=== PATIENT | male | born 1955 | race African-American/Black ===

== ENCOUNTER 2024-05-09 08:57 | Emergency (ER) | payer MEDICARE, SELFPAY ==
[2024-05-09] VITALS (22 sets, daily range): BP systolic 136–156; BP diastolic 72–79; PULSE 61–75; RESP 10–19; TEMP 36.4; O2SAT 98–100
--- NOTE | ~2024-05-09 | CT_ITS ---
CT brain wo con Ordering provider: Moriah Hernandez History: 69 years Male with . fall, ?LOC; Hx TBI Sz . Comparison: None. Technique: CT of the head without contrast. Radiation reduction technique utilized. DLP is 681 mGy-cm. FINDINGS: BRAIN PARENCHYMA AND CSF SPACES: Mild leukoaraiosis and diffuse cortical atrophy. Mild atheromatous d isease. No midline shift, mass effect or hemorrhage. The brain parenchyma and CSF spaces are otherwi se normal. VISUALIZED PARANASAL SINUSES: Well aerated. MASTOIDS: Well aerated. BONES: The bones appear intact. SOFT TISSUES: Visualized nasopharynx is normal. Superficial soft tissues are normal. IMPRESSION: No acute intracranial findings. Reviewed, dictated and finalized at location A.
--- NOTE | ~2024-05-09 | XR_ITS ---
XR shoulder RT min 2V 05/09/2024 11:56 Indication: Right shoulder pain after fall Procedure: 4 views right shoulder Comparison: No prior studies for comparison. Findings: There is anatomic alignment. No fracture, subluxation or dislocation. No significant soft t issue abnormality. No foreign bodies. Impression: 1: No acute fracture. Reviewed, dictated and finalized at location B. Impression: 1: No acute fracture.
--- NOTE | ~2024-05-09 | CT_ITS ---
EXAMINATION: CT cervical spine wo con DATE: 05/09/2024 11:51 INDICATION: Neck pain after fall TECHNIQUE: Computed tomography (CT) of the cervical spine was performed without intravenous contrast. The dose-length product was 201 mGy-cm. Automated exposure control and iterative reconstruction tech Calibrusque were employed. COMPARISON: None FINDINGS: There is accentuated kyphosis. There is levoscoliosis. There is disc narrowing at multiple levels. There is multilevel uncinate hypertrophy there is chronic wedge compression deformity of T2. No evidence for perched facet. Craniovertebral junction is normal. Odontoid process is normal. There is emphysema. There is apical pleural thickening/scarring bilaterally. IMPRESSION: 1. No acute abnormality of the cervical spine. 2: Chronic anterior wedge compression deformity of T2. 3: Severe cervical spondylosis with accentuated kyphosis and levoscoliosis. Reviewed, dictated and finalized at location B.
--- NOTE | 2024-05-09 09:02 | ECG_ITS ---
Test Date: 2024-05-09 09:04:15 Measurements Intervals [place] Rate: 71 P: 79 OR: 145 QRS: 67 QRSD: 88 T: 57 QT: 377 QTc: 412 Interpretive Statements SINUS RHYTHM WITH SINUS ARRHYTHMIA VOLTAGE CRITERIA FOR LVH BASELINE ARTIFACT- V3 BORDERLINE ECG No previous ECG available for comparison Electronically Signed On 05-09-2024 09:10:59 CDT by Spencer Lofton D.O.
[2024-05-09 09:21] LABS: Eosinophils Absolute Auto 0.1 K/mm3 (0-0.3); Eosinophils Percent Auto 3.3 % (0-4.4); Hematocrit 37.1 % (42.0-52.0); Hemoglobin 11.8 g/dL (14.0-18.0); Immature Granulocyte Absolute 0.03 K/mm3 (0.00-0.031); Immature Granulocyte Percent A 0.7 % (0-0.5); Lymphocytes Absolute Auto 1.14 K/mm3 (0.9-3.2); Lymphocytes Percent Auto 27.1 % (18.3-44.2); Mean Corpuscular HGB Conc 31.8 g/dl (32-36); Mean Corpuscular Volume 91.2 fl (80-100); Mean Platelet Volume 9.8 fl (7.4-10.4); Monocytes Absolute Auto 0.5 K/mm3 (0.1-0.6); Monocytes Percent Auto 12.6 % (2.6-8.5); Neutrophils Absolute Auto 2.3 K/mm3 (1.3-6.7); Neutrophils Percent Auto 55.3 % (45.5-73.1); Platelet Count Result 192 k/mm3 (150-375); Red Blood Count 4.07 M/mm3 (4.6-6.20); Red Cell Distribution Width 15.6 % (11.5-14.5); White Blood Count 4.2 K/mm3 (4.5-10.0)
[2024-05-09 09:34] LABS: Alanine Aminotransferase 15 U/L (6-50); Albumin Level 4.3 g/dL (3.5-5.1); Alkaline Phosphatase 69 U/L (38-126); Anion Gap 9 mmol/L (4-12); Aspartate Amino Transferase 21 U/L (17-59); Bilirubin,Total 0.4 mg/dL (0.2-1.3); Blood Urea Nitrogen 12 mg/dL (9-20); Calcium 8.9 mg/dL (8.4-10.2); Carbon Dioxide 32 mmol/L (22-30); Chloride 99 mmol/L (98-107); Estimated CRCL calculation 47 ml/min; Estimated Glomerular Filt Rate > 60; Glucose 92 mg/dL (65-110); Potassium 3.4 mmol/L (3.4-5.0); Sodium 140 mmol/L (137-145)
[2024-05-09 10:19] LABS: Lactic Acid Reflex 1.1 mmol/L (0.7-2.0)
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
[2024-05-09] MEDS: ACETAMINOPHEN 500 MG TABLET 1000 MG PO (11:15)
[2024-05-09] MEDS: KETOROLAC 15 MG/ML VIAL (*BKC) IV PUSH (13:06)
[2024-05-10 07:49] LABS: Levetiracetam Keppra 13.5 mcg/mL (6.0-46.0)
[2024-05-25 13:53] LABS: Lamotrigine Lamictal 10.2 mcg/mL (2.5-15.0)
== END 2024-05-09 14:07 ==
PROVIDERS: Emergency Provider Student in an Organized Health Care Education/Training Program
DX: S22.020A Wedge compression fracture of second thoracic vertebra, initial encounter for closed fracture (principal); D64.9 Anemia, unspecified; D72.819 Decreased white blood cell count, unspecified; G30.9 Alzheimer's disease, unspecified; M06.9 Rheumatoid arthritis, unspecified; F02.80 Dementia in other diseases classified elsewhere, unspecified severity, without behavioral disturbance, psychotic disturbance, mood disturbance, and anxiety; E78.5 Hyperlipidemia, unspecified; I10 Essential (primary) hypertension; Z79.82 Long term (current) use of aspirin; Z79.899 Other long term (current) drug therapy; W19.XXXA Unspecified fall, initial encounter
CPT/HCPCS: 36415; 70450; 72125; 73030; 80053; 80175; 80177; 83605; 85025; 93005; 96374; 99284; A9270; J1885

== ENCOUNTER 2024-06-01 20:09 | Emergency (ER) | payer MEDICARE, SELFPAY ==
[2024-06-01] VITALS (7 sets, daily range): BP systolic 117–130; BP diastolic 63–71; PULSE 86–108; RESP 13–19; TEMP 37.3–37.8; O2SAT 95–98
--- NOTE | ~2024-06-01 | CT_ITS ---
EXAMINATION: CT abdomen pelvis w con DATE: 06/01/2024 21:24 INDICATION: Abdominal distention and constipation. Febrile. TECHNIQUE: Computed tomography (CT) of the abdomen and pelvis was performed with 100 mL Omnipaque-350 intravenous contrast. Automated exposure control and iterative reconstruction technique were employe d. The dose-length product was 193.79 mGy-cm. COMPARISON: None FINDINGS: Mild emphysema. Mild dependent atelectasis in the bilateral lower lobes heart size is normal. No ama cardial or pleural effusion. Small sliding-type hiatal hernia and edematous wall thickening the dista l esophagus suggestive of esophagitis and the setting of reflux. Liver, gallbladder, spleen, pancreas , bilateral adrenal glands and kidneys are normal. There is fluid scattered throughout significant po rtion of the colon consistent with diarrhea. No frankly dilated loops of small bowel or transition po int to suggest obstruction. Prostatomegaly. Guevara catheter and gas within the decompressed bladder. A ssessment of the pelvis is somewhat limited by dense metallic streak artifact from a bipolar type lef t hip hemiarthroplasty. Suggestion of a small amount of ascites in the deep pelvis. No abscess or yony e intraperitoneal gas. Indeterminate mixed lytic and sclerotic lesion at the right ischial which rais es concern for metastatic disease. Old healed fractures of the right inferior pubic ramus and left le sser trochanter. There are also . Be a few scattered more subtle lytic lesions such as in the T11 rafi tebral body and left posterior iliac spine. IMPRESSION: 1. Small sliding-type hiatal hernia with prominent wall thickening the distal esophagus suggesting es ophagitis such as in the setting of reflux. 2. Prominent gas and fluid in the colon consistent with diarrhea. 3. Small amount nonspecific ascites in the deep pelvis. 4. Indeterminate mixed lytic and sclerotic lesion at the right ischial as well as a few scattered tammie ent bone lesions in the spine and pelvis which remains concerning for malignancy including metastatic disease or multiple myeloma. Correlate with clinical history and consider further evaluation with carri ne scan and SPEP/UPEP levels. Reviewed, dictated and finalized at location A. IMPRESSION: 1. Small sliding-type hiatal hernia with prominent wall thickening the distal e sophagus suggesting esophagitis such as in the setting of reflux. 2. Prominent gas and fluid in the colon consistent with diarrhea. 3. Small amount nonspecific ascites in the deep pelvis. 4. Indeterminate mixed lytic and sclerotic lesion at the right ischial as well as a few scattered lucent bone lesions in the spine and pelvis which remains co ncerning for malignancy including metastatic disease or multiple myeloma. Corre late with clinical history and consider further evaluation with bone scan and S PEP/UPEP levels.
--- NOTE | ~2024-06-01 | XR_ITS ---
EXAMINATION: XR chest 1V DATE: 06/01/2024 21:14 INDICATION: Borderline febrile TECHNIQUE: frontal view of the chest was obtained. COMPARISON: None FINDINGS: The lungs are clear with no focal airspace opacities, pulmonary edema, pleural effusion or pneumothor ax. The cardiomediastinal silhouette is normal. Partially supply project over the left hemithorax wit h leads extending cephalad towards the left neck and beyond the cephalad margin field of view potenti ally carotid body stimulator. A few old bilateral rib fractures. IMPRESSION: 1. No acute cardiopulmonary disease. Reviewed, dictated and finalized at location A.
--- NOTE | ~2024-06-01 | XR_ITS ---
EXAMINATION: XR hip LT 2V w AP pelvis DATE: 06/01/2024 21:14 INDICATION: Left hip pain TECHNIQUE: Anteroposterior view of the pelvis and anteroposterior and cross-table lateral views of th e left hip were obtained. COMPARISON: None. FINDINGS: Noncemented bipolar type left hip hemiarthroplasty which appears well seated in near-anatomic alignme nt. Old healed fractures at the the right inferior pubic ramus and left lesser trochanter. Prominent heterotopic ossification about the left greater trochanter which extends towards the rim of the left acetabulum. Sclerotic lesion at the right ischial tuberosity. No acute fractures. Mild osteoarthritis at the right hip and bilateral sacroiliac joints. Temperature probe within a Guevara catheter within t he bladder. IMPRESSION: 1. No acute osseous abnormality. 2. Indeterminate sclerotic lesion at the right ischial tuberosity which raises concern for malignancy . Correlate for history of prior malignancy and consider bone scan for further evaluation. Reviewed, dictated and finalized at location A. IMPRESSION: 1. No acute osseous abnormality. 2. Indeterminate sclerotic lesion at the right ischial tuberosity which raises concern for malignancy. Correlate for history of prior malignancy and consider bone scan for further evaluation.
--- NOTE | 2024-06-01 20:23 | ED.ABDPAIN ---
HPI - Abdominal Pain General Chief Complaint: Abdominal Pain Stated Complaint: HIP PAIN, ABD PAIN, CONSTIPATION Time Seen by Provider: 06/01/24 20:15 Source: patient and EMS Mode of arrival: EMS History of Present Illness HPI narrative: Patient presents with complaint of abdominal pain and left hip pain. There is reported by facility that he has been constipated. It is reported that his abdomen is distended. No report of fall or injury though a possible prior injury in this location. Related Data Allergies Allergy/AdvReac Type Severity Reaction Status Date / Time No Known Allergies Allergy Verified 05/09/24 09:14 PMFSH Past Medical History Medical History Acute and chronic respiratory failure with hypoxia Alzheimer's disease, unspecified Depression, unspecified Essential (primary) hypertension Generalized anxiety disorder Hyperlipidemia, unspecified Moderate protein-calorie malnutrition Other epilepsy, intractable, with status epilepticus Rheumatoid arthritis, unspecified Unspecified convulsions 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, subsequent encounter Social History Social History Social History: Code Status DNR per intermediate doumentation Living arrangements: intermediate Additional living arrangements comments: [facility] Exam Narrative: GENERAL: Well-appearing, well-nourished, and in no acute distress. HEAD: Normocephalic, atraumatic. EYES: Non injected, non icteric. Arcus senilis. ENT: Nares clear, no rhinorrhea or epistaxis. NECK: Supple. CHEST: Speaking in full sentences. No respiratory distress. HEART: Tachycardic rate and rhythm. . ABDOMEN: Soft, distended. Generalized tenderness to palpation throughout. EXTREMITIES: Normal range of motion. No lower extremity edema. Pelvis: Stable to compression without deborah tenderness to palpation. SKIN: Warm, dry, no rash. NEURO: No focal deficits. Alert and oriented. PSYCH: Normal mood and affect. Course Vital Signs Vital signs: Vital Signs Temperature 100.0 F H 06/01/24 20:10 Pulse Rate 108 H 06/01/24 20:10 Respiratory Rate 13 06/01/24 20:10 Blood Pressure 119/71 06/01/24 20:10 Pulse Oximetry 97 06/01/24 20:10 Oxygen Delivery Room Air 06/01/24 20:10 Temperature 99.1 F 06/01/24 23:45 Pulse Rate 95 06/01/24 23:45 Respiratory Rate 17 06/01/24 23:45 Blood Pressure 117/67 06/01/24 23:45 Pulse Oximetry 98 06/01/24 23:45 Oxygen Delivery Room Air 06/01/24 20:10 MDM - Abdominal Pain MDM Narrative Medical decision making narrative: Patient presents the emergency department with report constipation abdominal distension as well as left hip pain. In the emergency department he is afebrile (though borderline on both oral and rectal) with vital signs that show mild tachycardia. Patient has hypokalemia and hypomagnesemia. Will replete both. Patient has a hiatal hernia with signs of esophagitis; PPI ordered. Facility had stated that patient had not had a bowel movement several days. Patient denies this and rather states that he has been running out . I did clarify that this meant that he has been having diarrhea which he confirms this is evident based on CT scan as well. He does not believe he has been on any antibiotics. Current medication list from facility does not include any antibiotics.. C diff ordered however patient unable to provide stool sample while in the ED which also makes this diagnosis less likely. The differential for acute ( less than 14d) diarrhea includes infectious etiologies (viral, preformed toxins, toxins formed after colonization, invasive bacteria, and parasites), medications, inflammatory causes (IBD, radiation enteritis, ischemic colitis, diverticulitis), malabsorption, secretory causes, or motility disorders. Patient'
[2024-06-01] MEDS: ACETAMINOPHEN 650 MG SUPPOSITORY RECTAL (20:34)
[2024-06-01 20:42] LABS: Basophils Percent Auto 0.4 % (0.2-1.2); Eosinophils Absolute Auto 0.2 K/mm3 (0-0.3); Eosinophils Percent Auto 2.1 % (0-4.4); Hemoglobin 12.6 g/dL (14.0-18.0); Immature Granulocyte Absolute 0.03 K/mm3 (0.00-0.031); Immature Granulocyte Percent A 0.3 % (0-0.5); Lymphocytes Absolute Auto 1.43 K/mm3 (0.9-3.2); Lymphocytes Percent Auto 15.7 % (18.3-44.2); Mean Corpuscular HGB Conc 32.3 g/dl (32-36); Mean Corpuscular Hemoglobin 29.3 pg (26-34); Mean Corpuscular Volume 90.7 fl (80-100); Mean Platelet Volume 10.2 fl (7.4-10.4); Monocytes Absolute Auto 1.7 K/mm3 (0.1-0.6); Monocytes Percent Auto 18.9 % (2.6-8.5); Neutrophils Absolute Auto 5.7 K/mm3 (1.3-6.7); Neutrophils Percent Auto 62.6 % (45.5-73.1); Platelet Count Result 218 k/mm3 (150-375); Red Cell Distribution Width 16.2 % (11.5-14.5); White Blood Count 9.1 K/mm3 (4.5-10.0)
[2024-06-01 20:51] LABS: Lactic Acid Reflex 0.9 mmol/L (0.7-2.0)
[2024-06-01 20:52] LABS: Prothrombin Time 13.2 Seconds (11.1-14.7)
[2024-06-01 20:53] LABS: Alanine Aminotransferase 9 U/L (6-50); Albumin Level 4.3 g/dL (3.5-5.1); Alkaline Phosphatase 74 U/L (38-126); Anion Gap 13 mmol/L (4-12); Aspartate Amino Transferase 15 U/L (17-59); Bilirubin,Total 0.4 mg/dL (0.2-1.3); Blood Urea Nitrogen 16 mg/dL (9-20); Calcium 8.5 mg/dL (8.4-10.2); Carbon Dioxide 24 mmol/L (22-30); Chloride 103 mmol/L (98-107); Estimated CRCL calculation 45 ml/min; Estimated Glomerular Filt Rate > 60; Glucose 107 mg/dL (65-110); Magnesium 1.5 mg/dL (1.6-2.3); Partial Thromboplastin Time 25.6 Seconds (22.3-36.8); Potassium 3.2 mmol/L (3.4-5.0); Sodium 140 mmol/L (137-145)
[2024-06-01 21:06] LABS: Add Urine Microscopic? YES; Appearance Urine Clear (Clear); Bacteria Urine None Seen /hpf; Bilirubin Urine Negative (Negative); Blood Urine Negative (Negative); Color Urine Yellow (Yellow); Glucose Urine UA Negative (Negative); Ketones Urine Trace mg/dL (Negative); Leukocyte Esterase Ur Negative LEU/UL (Negative); Need Manual Microscopic Reviewed; Nitrate Urine Negative (Negative); Protein Urine 2+ mg/dL (Negative); Squamous Epithelial Cell Urine None Seen /hpf (Few); Urobilinogen Urine 0.2 mg/dL (<2.0); WBC Urine 0-5 /hpf (0-3); pH Urine 5.5 (5.0-9.0)
[2024-06-01 21:17] LABS: Influenza A QL RT-PCR Negative (Negative); Influenza B QL RT-PCR Negative (Negative); RSV RNA, RT-PCR Negative (Negative); SARS-CoV-2 RNA PCR Negative (Negative)
[2024-06-01] MEDS: MAGNESIUM SULF 1 GM/D5W 100 ML 1 GM/100 ML BAG IVPB (21:32)
[2024-06-01] MEDS: KCL 20 MEQ/SW 100 ML 100 ML 50 MEQ IVPB (21:58)
[2024-06-01] MEDS: PANTOPRAZOLE 40 MG TABLET PO (22:17)
== END 2024-06-02 00:32 ==
PROVIDERS: Emergency Provider Student in an Organized Health Care Education/Training Program
DX: D64.9 Anemia, unspecified (principal); E87.6 Hypokalemia; E83.42 Hypomagnesemia; M89.9 Disorder of bone, unspecified; K44.9 Diaphragmatic hernia without obstruction or gangrene; K21.9 Gastro-esophageal reflux disease without esophagitis; R50.9 Fever, unspecified; R19.7 Diarrhea, unspecified; R10.9 Unspecified abdominal pain; Z20.822 Contact with and (suspected) exposure to COVID-19; G30.9 Alzheimer's disease, unspecified; F02.80 Dementia in other diseases classified elsewhere, unspecified severity, without behavioral disturbance, psychotic disturbance, mood disturbance, and anxiety; F32.A Depression, unspecified; I10 Essential (primary) hypertension; F41.9 Anxiety disorder, unspecified; E78.5 Hyperlipidemia, unspecified; G40.909 Epilepsy, unspecified, not intractable, without status epilepticus
CPT/HCPCS: 36415; 71045; 73502; 74177; 80053; 81001; 83605; 83735; 85025; 85610; 85730; 87040; 87637; 96365; 96366; 96367; 99284; A9270; J3475; J3480; Q9967

== ENCOUNTER 2024-07-03 18:11 | Observation (INO) | payer MEDICARE, MEDICAID, SELFPAY ==
[2024-07-03] VITALS (12 sets, daily range): BP systolic 130–142; BP diastolic 70–83; PULSE 91–104; RESP 13–24; TEMP 37.3–38.4; O2SAT 96–100
--- NOTE | ~2024-07-03 | CT_ITS ---
EXAMINATION: CT abdomen pelvis w con DATE: 07/03/2024 23:32 INDICATION: possible obstruction TECHNIQUE: Computed tomography (CT) of the abdomen and pelvis was performed with 100 mL Omnipaque-350 intravenous contrast. Automated exposure control and iterative reconstruction technique were employe d. The dose-length product was 383.47 mGy-cm. COMPARISON: 06/01/2024. FINDINGS: Exam limited by motion and beam hardening from arm down positioning. Lower thorax: Motion artifact in the lung bases. Bibasilar scar/atelectasis. Liver: Normal. Biliary/Gallbladder: Gallbladder is normal. No bile duct dilation. Pancreas: No mass or duct dilation. Spleen: Subcentimeter hypodensity likely representing a cyst or hemangioma. Adrenals:No mass. Kidneys: No suspicious mass, obstructing stone, or hydronephrosis. 8 mm left midpole calcification. GI tract: Moderate hiatal hernia. Moderate distal esophageal and proximal gastric wall edema. Mildly dilated loops of small bowel throughout the abdomen, without definite transition point. Normal append ix. Mesentery/Peritoneum: No ascites, mass, or free air. Retroperitoneum: No mass. Atherosclerotic abdominal aortic and/or arterial calcifications. Pelvis: Partial obscuration from metal artifact. Urinary bladder poorly visualized. Prostatomegaly. Soft Tissues: Soft tissues and body wall unremarkable. Bones: No acute osseous finding. Uncomplicated appearing left hip arthroplasty hardware. Stable mixe d sclerotic lesion in the right ischium. Stable lytic lesions in T11 and the left posterior iliac spi ne. IMPRESSION: Moderate esophagitis/gastritis. Diffuse mild dilation of small bowel may represent ileus or obstruction. No definite transition point detected. Stable osseous lesions concerning for disease or multiple myeloma. Reviewed, dictated and finalized at location K. IMPRESSION: Moderate esophagitis/gastritis. Diffuse mild dilation of small bowel may represent ileus or obstruction. No def inite transition point detected. Stable osseous lesions concerning for disease or multiple myeloma.
--- NOTE | ~2024-07-03 | CT_ITS ---
EXAMINATION: CTA BRAIN/CAROTID DATE: 07/05/2024 09:46 INDICATION: Altered mental status. Fall. Covid with fever and seizure. TECHNIQUE: Computed tomographic angiography (CTA) of the head and neck was performed with 100 mL Omni paque-350 intravenous contrast. Multiplanar reconstructions and maximum intensity projection 3D-recon structions of the carotid arteries and of the intracranial arteries were created by the technologist on a separate workstation. Precontrast CT of the head was also obtained. Automated exposure control and iterative reconstruction technique were employed.The dose-length product was 1650.42 mGy-cm. COMPARISON: 07/03/2024 FINDINGS: Carotid arteries: Aortic arch is normal in caliber with no dissection. There is no evident atherosclerotic plaque with 0% stenosis of the right carotid bulb relative to normal distal artery lumen diameter (NASCET criteri a). There is small amount of atherosclerotic plaque with 0% stenosis of the left carotid bulb relativ e to normal distal artery lumen diameter. Moderate cervical spondylosis with chronic mild T2 compress ion fracture. Moderate biapical pleural-parenchymal scarring. Cervical soft tissues are unremarkable. . Head: No acute intracranial hemorrhage, acute infarction or abnormal extra axial fluid collection. There is moderate scattered white matter hypoattenuation consistent with chronic small vessel ischemic diseas e. Tiny focus of calcification along a small tract of encephalomalacia in the right frontal lobe medi ally deep to possible tiny puja hole tract in the overlying right frontal bone. Correlate with surgic al history. Ventricles are normal and symmetric. No mass/mass effect. The orbits, paranasal sinuses a nd mastoid air cells are normal. Intracranial arteries There is no hemodynamically significant stenosis in the vertebral, basilar and internal carotid arter ies. Vertebral arteries are codominant. There are no aneurysms identified. Both A1 and P1 segments a re patent. Cerebral arterial arborization appears symmetric. IMPRESSION: 1. 0% stenosis of the right and left carotid bulbs relative to normal distal artery lumen diameter (N ASCET criteria). 2. No aneurysm, hematoma or significant stenosis or thrombosis of the intracranial arteries. 3. Moderate scattered white matter hypoattenuation consistent with chronic small vessel ischemic dise ase. No other acute intracranial process. Reviewed, dictated and finalized at location B. IMPRESSION: 1. 0% stenosis of the right and left carotid bulbs relative to normal distal ar kayla lumen diameter (NASCET criteria). 2. No aneurysm, hematoma or significant stenosis or thrombosis of the intracran ial arteries. 3. Moderate scattered white matter hypoattenuation consistent with chronic smal l vessel ischemic disease. No other acute intracranial process.
--- NOTE | ~2024-07-03 | CT_ITS ---
EXAMINATION: CT brain wo con DATE: 07/03/2024 20:08 INDICATION: head injury . TECHNIQUE: Computed tomography (CT) of the head was performed without intravenous contrast. The mA wa s adjusted according to patient size. Iterative reconstruction technique was employed. The dose-lengt h product was 681.00 mGy-cm. COMPARISON: 05/09/2024. FINDINGS: No acute intracranial hemorrhage or extra-axial fluid collection. No hydrocephalus, mass, or herniation. No acute ischemic infarct. Unremarkable dural venous sinus attenuation. No acute osseous abnormality. Ethmoid mucosal thickening, left mastoid fluid, the remaining aerated spaces are clear. Moderate atrophy and chronic white matter change. Atherosclerotic intracranial calcification. IMPRESSION: No acute intracranial process. Reviewed, dictated and finalized at location K.
--- NOTE | ~2024-07-03 | XR_ITS ---
EXAMINATION: XR barium swallow modified DATE: 07/05/2024 10:08 INDICATION: Aspiration. TECHNIQUE: The patient was given barium-containing material of multiple consistencies to swallow by t he speech pathologist while I performed fluoroscopy. Fluoroscopy exposure time was 1.9 minutes. The n umber of fluoroscopy images saved to the PACS was 1. Dose-area product was 1.417 Gy-cm^2. FINDINGS: The oral stage, pharyngeal stage, and cervical/esophageal stage of the swallow are normal. IMPRESSION: 1. Normal modified barium swallow. 2. Please refer to the speech therapy report for recommendations. Reviewed, dictated and finalized at location A.
--- NOTE | ~2024-07-03 | XR_ITS ---
EXAMINATION: XR chest 1V portable Exam Date/Time: 07/03/2024 19:30 CDT HISTORY: fever Comparison: 06/01/2024. RESULT: Lines, tubes, and devices: Left chest stimulator pack, leads terminate over the left neck. Lungs and pleura: Clear. Cardiomediastinal silhouette: Stable. Other: No acute osseous or upper abdominal finding. IMPRESSION: No acute cardiopulmonary process. Reviewed, dictated and finalized at location K.
--- NOTE | ~2024-07-03 | CT_ITS ---
EXAMINATION: CT cervical spine wo con DATE: 07/03/2024 20:08 INDICATION: fall TECHNIQUE: Computed tomography (CT) of the cervical spine was performed without intravenous contrast. Automated exposure control and iterative reconstruction technique were employed. The dose-length pro duct was 145.28 mGy-cm. COMPARISON: None. FINDINGS: Vertebral Body Alignment: Intact. Exaggerated kyphosis. Craniocervical and atlantoaxial alignment: Moderate degenerative change. Alignment intact. Osseous structures/fracture: No evidence of a lytic or blastic process in the visualized spine. No e vidence of acute fracture. Chronic stable mild wedge deformity at C4, C5, and T2. Cervical soft tissues: The paraspinal soft tissues planes are maintained. Biapical pleural scarring. Degenerative changes: Multilevel degenerative disc disease and facet arthropathy. Severe bilateral ne ural foraminal narrowing secondary to degenerative changes at C4-5 and C5-6. No severe central canal narrowing. IMPRESSION: No acute fracture or traumatic malalignment in the cervical spine. Reviewed, dictated and finalized at location K.
--- NOTE | ~2024-07-03 | XR_ITS ---
EXAM: XR abdomen/kub 1V DATE: 07/03/2024 21:51 HISTORY: distension . COMPARISON: CT abdomen pelvis 06/01/2024. FINDINGS: Clear lung bases. The stomach is air-filled and mildly distended. Multiple loops of air-fi lled, mildly dilated large and small bowel throughout the abdomen. No organomegaly. No abnormal abdom inal calcification. Partially visualized left hip bipolar arthroplasty hardware, with excessive later al tilt of the acetabular component which is a chronic finding. 2.3 cm mixed sclerotic and lytic lesi on in the right ischium, stable. IMPRESSION: Diffusely air-filled and mildly dilated large and small bowel may represent chronic ileus . Obstruction is not excluded. Reviewed, dictated and finalized at location K. IMPRESSION: Diffusely air-filled and mildly dilated large and small bowel may r epresent chronic ileus. Obstruction is not excluded.
[2024-07-03] MEDS: SODIUM CHLORIDE 0.9% IV 1,000 ML 999 ML IV CONT ×2 (18:40→21:36)
[2024-07-03 18:55] LABS: Hematocrit 40.3 % (42.0-52.0); Hemoglobin 13.1 g/dL (14.0-18.0); Mean Corpuscular HGB Conc 32.5 g/dl (32-36); Mean Corpuscular Volume 89.4 fl (80-100); Mean Platelet Volume 10.3 fl (7.4-10.4); Platelet Count Result 176 k/mm3 (150-375); Red Blood Count 4.51 M/mm3 (4.6-6.20); White Blood Count 9.2 K/mm3 (4.5-10.0)
[2024-07-03 19:07] LABS: Alanine Aminotransferase 23 U/L (6-50); Alkaline Phosphatase 70 U/L (38-126); Anion Gap 16 mmol/L (4-12); Aspartate Amino Transferase 42 U/L (17-59); Bilirubin,Total 0.6 mg/dL (0.2-1.3); Blood Urea Nitrogen 17 mg/dL (9-20); Calcium 9.5 mg/dL (8.4-10.2); Carbon Dioxide 27 mmol/L (22-30); Chloride 97 mmol/L (98-107); Estimated CRCL calculation 37 ml/min; Estimated Glomerular Filt Rate > 60; Glucose 135 mg/dL (65-110); INR 1.1; Lactic Acid Reflex 2.6 mmol/L (0.7-2.0); Potassium 3.9 mmol/L (3.4-5.0); Prothrombin Time 14.3 Seconds (11.1-14.7); Sodium 140 mmol/L (137-145)
[2024-07-03 19:08] LABS: Add Urine Microscopic? YES; Appearance Urine Cloudy (Clear); Bacteria Urine None Seen /hpf; Bilirubin Urine Negative (Negative); Blood Urine 3+ (Negative); Color Urine Yellow (Yellow); Glucose Urine UA Negative (Negative); Ketones Urine Trace mg/dL (Negative); Leukocyte Esterase Ur Trace LEU/UL (Negative); Need Manual Microscopic Reviewed; Nitrate Urine Negative (Negative); Protein Urine 3+ mg/dL (Negative); Specific Grav Ur 1.027 (1.001-1.035); Squamous Epithelial Cell Urine None Seen /hpf (Few); WBC Urine 0-5 /hpf (0-3); pH Urine 5.5 (5.0-9.0)
[2024-07-03 19:08] LABS: Partial Thromboplastin Time 30.8 Seconds (22.3-36.8)
[2024-07-03 19:30] LABS: Influenza A QL RT-PCR Negative (Negative); Influenza B QL RT-PCR Negative (Negative); RSV RNA, RT-PCR Negative (Negative); SARS-CoV-2 RNA PCR Positive (Negative)
[2024-07-03 20:13] LABS: Band Neutrophils Percent 9 % (0-6); Lymphocytes Absolute Manual 0.82 K/mm3 (1.1-4.5); Monocytes Absolute Manual 0.82 K/mm3 (0.1-0.90); Monocytes Percent Manual 9 % (3-9); Neutrophils Absolute Manual 7.54 K/mm3 (1.3-6.7); Neutrophils Percent Manual 73 % (46-73); Total Cells Counted 100
[2024-07-03 20:14] LABS: Platelet Estimate Adequate (Adequate); Schistocytes None Seen
[2024-07-03 20:15] LABS: Anisocytosis 1+
[2024-07-03] MEDS: ACETAMINOPHEN 325 MG TABLET 650 MG PO (21:37)
[2024-07-03 21:50] LABS: Reflex Lactic Acid Yes or No Add Lactic
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
[2024-07-03] MEDS: levETIRAcetam 1000MG/NACL100ML 1,000 MG/100 ML BAG 400 MG IVPB (22:45)
--- NOTE | 2024-07-03 23:51 | ADMGEN ---
This patient, Ranjan Brennan, was admitted to Medical Room 342-01. Patient/family oriented to hospital policies and general routines including ID bracelet, bed and alarms, visiting hours, pain management, procedures, bathroom and other care routines, personal items, smoking policy, room service/diet, and visiting hours. Information on how to activate the Rapid Response Team has been discussed. Patient/Family are encouraged to report perceived risks to care and to ask questions if they do not understand what they are told or what they should do.
[2024-07-04] VITALS (11 sets, daily range): BP systolic 120–135; BP diastolic 53–74; PULSE 79–102; RESP 18–20; TEMP 37.3–39; O2SAT 97–99; BMI 17.0
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
[2024-07-04 05:54] LABS: Basophils Absolute Auto 0.1 K/mm3 (0.0-0.1); Basophils Percent Auto 0.9 % (0.2-1.2); Eosinophils Percent Auto 0.2 % (0-4.4); Hematocrit 38.4 % (42.0-52.0); Hemoglobin 11.5 g/dL (14.0-18.0); Immature Granulocyte Absolute 0.03 K/mm3 (0.00-0.031); Immature Granulocyte Percent A 0.5 % (0-0.5); Immature Platelet Fraction Pct 3.7 % (0.9-11.2); Lymphocytes Absolute Auto 0.55 K/mm3 (0.9-3.2); Lymphocytes Percent Auto 8.5 % (18.3-44.2); Mean Corpuscular HGB Conc 29.9 g/dl (32-36); Mean Corpuscular Volume 93.7 fl (80-100); Mean Platelet Volume 10.6 fl (7.4-10.4); Monocytes Absolute Auto 0.6 K/mm3 (0.1-0.6); Monocytes Percent Auto 9.9 % (2.6-8.5); Neutrophils Absolute Auto 5.2 K/mm3 (1.3-6.7); Platelet Count Result 138 k/mm3 (150-375); White Blood Count 6.5 K/mm3 (4.5-10.0)
[2024-07-04 06:17] LABS: Alanine Aminotransferase 23 U/L (6-50); Alkaline Phosphatase 51 U/L (38-126); Anion Gap 11 mmol/L (4-12); Aspartate Amino Transferase 46 U/L (17-59); Bilirubin,Total 0.5 mg/dL (0.2-1.3); Blood Urea Nitrogen 16 mg/dL (9-20); Calcium 8.5 mg/dL (8.4-10.2); Carbon Dioxide 24 mmol/L (22-30); Chloride 104 mmol/L (98-107); Estimated CRCL calculation 53 ml/min; Estimated Glomerular Filt Rate > 60; Glucose 101 mg/dL (65-110); Magnesium 1.9 mg/dL (1.6-2.3); Potassium 4.2 mmol/L (3.4-5.0); Sodium 139 mmol/L (137-145)
[2024-07-04 06:44] LABS: Procalcitonin 1.7 ng/mL
[2024-07-04 07:05] LABS: Anisocytosis 1+; Hypochromasia 1+; Platelet Estimate Adequate (Adequate); Schistocytes None Seen
[2024-07-04] MEDS: QUEtiapine FUMARATE 25 MG TABLET PO ×2 (10:07→20:19)
[2024-07-04] MEDS: ASPIRIN 81 MG ENTERIC TABLET PO (10:07)
[2024-07-04] MEDS: MEMANTINE 10 MG TABLET PO (10:07)
[2024-07-04] MEDS: ESCITALOPRAM OXALATE 10 MG TABLET PO (10:07)
[2024-07-04] MEDS: PANTOPRAZOLE SODIUM IV 40 MG VIAL IV PUSH (10:08)
[2024-07-04] MEDS: lamoTRIgine 100 MG TABLET 300 MG PO (10:08)
[2024-07-04] MEDS: ATORVASTATIN 20 MG TABLET PO (10:08)
[2024-07-04] MEDS: levETIRAcetam 500 MG TABLET 1000 MG PO (10:08)
--- NOTE | 2024-07-04 13:22 | P.CDI_ITS ---
yes. severe protein calorie malnutrition CDI Query Clarification Request BMI: 17.0 Nutritional Diagnostic Statement: Please refer to the comprehensive nutrition assessment for further information. If you agree with diagnosis of Severe Protein Calorie Malnutrition as related to inadequate protein-energy intake with increased protein-energy needs in setting of chronic disease as evidenced by poor po intake; significant weight loss of 7 ibs (15%) in 1.5 months with severe subcutaneous fat loss (orbital fat pads) and severe muscle wasting (temporalis). Please specify severity if known. * Mild * Moderate * Severe * Other/Unknown
--- NOTE | 2024-07-04 14:58 | PCSTNOTE ---
MBS was tentatively scheduled for 2:30 today however radiology informed this READINESS PARAPROFESSIONAL that patient is unable to sign to approve testing and family is not present; also patient needs CT scan before barium and they require that to be approved as well. Rescheduled for tomorrow morning when able.
[2024-07-04] MEDS: IBUPROFEN IV 800 MG/200 ML 800 MG/200 ML BAG 400 MG IVPB (15:08)
--- NOTE | 2024-07-04 15:16 | P.PNCROSS_ITS ---
Event Note Event Note Event Note: Patient had been seen and assessed by previous provider same day. Follow-up a ssessment by this provider continued with current treatment plan however patient was lethargic with minimal response to questions most responded to stimuli. Unsure of patient's baseline however nursing staff reported that the SNF stated he was ambulatory at their facility and is alert 1-2 no family at bedside to verify baseline. Patient has suffered from a TBI he was brought to the emergency department after a fall at the facility is reported patient did not receive his medications prior to arrival and there was some concern he suffered from a seizure. Patient was also found to have a fever tested positive for COVID. Nursing staff also reported he was coughing with oral intake patient was made NPO and barium swallow study ordered for potential aspiration currently on Rocephin did change patient's Keppra to IV while NPO. Patient with moderate distension to abdomen and reported diarrhea CT scan showed no acute issues discussed with General surgery will start regimen with suppositories. Did order CTA for further evaluation with some concerns for possible stroke unable to do MRI due to stimulator. Patient did continue to have fevers throughout the day switched over to IV ibuprofen fall currently NPO known origin of fever blood cultures pending potentially from COVID-19 or aspiration pneumonia.
[2024-07-04] MEDS: SODIUM CHLORIDE 0.9% IV 1,000 ML 100 ML IV CONT (16:31)
[2024-07-04] MEDS: DONEPEZIL HCL 10 MG TABLET PO (20:19)
[2024-07-04] MEDS: TAMSULOSIN HCL 0.4 MG CAPSULE PO (20:19)
[2024-07-04] MEDS: levETIRAcetam 1000MG/NACL100ML 1,000 MG/100 ML BAG 400 MG IVPB (20:24)
[2024-07-04 21:37] LABS: Add Urine Microscopic? YES; Appearance Urine Clear (Clear); Bacteria Urine None Seen /hpf; Bilirubin Urine Negative (Negative); Blood Urine 2+ (Negative); Color Urine Yellow (Yellow); Glucose Urine UA Negative (Negative); Ketones Urine 2+ mg/dL (Negative); Leukocyte Esterase Ur Negative LEU/UL (Negative); Nitrate Urine Negative (Negative); Protein Urine 2+ mg/dL (Negative); RBC Urine 0-2 /hpf (0-2); Specific Grav Ur 1.032 (1.001-1.035); Squamous Epithelial Cell Urine None Seen /hpf (Few); Urobilinogen Urine 0.2 mg/dL (<2.0); WBC Urine 0-5 /hpf (0-3); pH Urine 5.5 (5.0-9.0)
[2024-07-05] VITALS (13 sets, daily range): BP systolic 123–139; BP diastolic 59–73; PULSE 69–92; RESP 16–20; TEMP 36.5–38; O2SAT 98–100
[2024-07-05] MEDS: SODIUM CHLORIDE 0.9% IV 1,000 ML 100 ML IV CONT (05:38)
[2024-07-05] MEDS: ACETAMINOPHEN 650 MG SUPPOSITORY RECTAL (05:38)
[2024-07-05 07:53] LABS: Basophils Percent Auto 0.3 % (0.2-1.2); Eosinophils Percent Auto 0.5 % (0-4.4); Hematocrit 31.1 % (42.0-52.0); Hemoglobin 9.9 g/dL (14.0-18.0); Immature Granulocyte Absolute 0.03 K/mm3 (0.00-0.031); Immature Granulocyte Percent A 0.5 % (0-0.5); Lymphocytes Absolute Auto 0.51 K/mm3 (0.9-3.2); Lymphocytes Percent Auto 8.7 % (18.3-44.2); Mean Corpuscular HGB Conc 31.8 g/dl (32-36); Mean Corpuscular Hemoglobin 28.5 pg (26-34); Mean Corpuscular Volume 89.6 fl (80-100); Mean Platelet Volume 10.8 fl (7.4-10.4); Monocytes Absolute Auto 0.6 K/mm3 (0.1-0.6); Neutrophils Absolute Auto 4.6 K/mm3 (1.3-6.7); Platelet Count Result 159 k/mm3 (150-375); Red Blood Count 3.47 M/mm3 (4.6-6.20); Red Cell Distribution Width 17.1 % (11.5-14.5); White Blood Count 5.8 K/mm3 (4.5-10.0)
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
[2024-07-05 08:13] LABS: Alanine Aminotransferase 21 U/L (6-50); Albumin Level 3.5 g/dL (3.5-5.1); Alkaline Phosphatase 50 U/L (38-126); Anion Gap 7 mmol/L (4-12); Aspartate Amino Transferase 32 U/L (17-59); Bilirubin,Total 0.5 mg/dL (0.2-1.3); Blood Urea Nitrogen 14 mg/dL (9-20); Calcium 7.9 mg/dL (8.4-10.2); Carbon Dioxide 26 mmol/L (22-30); Chloride 107 mmol/L (98-107); Estimated CRCL calculation 53 ml/min; Estimated Glomerular Filt Rate > 60; Glucose 91 mg/dL (65-110); Potassium 3.2 mmol/L (3.4-5.0); Sodium 140 mmol/L (137-145)
[2024-07-05] MEDS: levETIRAcetam 1000MG/NACL100ML 1,000 MG/100 ML BAG 400 MG IVPB (08:23)
[2024-07-05] MEDS: BISACODYL 10 MG SUPPOSITORY RECTAL (08:24)
[2024-07-05] MEDS: PANTOPRAZOLE SODIUM IV 40 MG VIAL IV PUSH (08:24)
--- NOTE | 2024-07-05 10:59 | PCSTNOTE ---
Please refer to the Modified Barium Swallow Evaluation in the EMR.
[2024-07-05] MEDS: lamoTRIgine 100 MG TABLET 300 MG PO ×2 (11:25→20:35)
[2024-07-05] MEDS: ESCITALOPRAM OXALATE 10 MG TABLET PO (11:29)
[2024-07-05] MEDS: ATORVASTATIN 20 MG TABLET PO (11:29)
[2024-07-05] MEDS: QUEtiapine FUMARATE 25 MG TABLET PO ×2 (11:29→20:35)
[2024-07-05] MEDS: MEMANTINE 10 MG TABLET PO ×2 (11:29→16:00)
[2024-07-05] MEDS: ASPIRIN 81 MG ENTERIC TABLET PO (11:29)
[2024-07-05] MEDS: POTASSIUM CHLORIDE 20 MEQ PACKET (FOR LIQUID) 40 MEQ PO (16:00)
[2024-07-05] MEDS: TAMSULOSIN HCL 0.4 MG CAPSULE PO (20:35)
[2024-07-05] MEDS: DONEPEZIL HCL 10 MG TABLET PO (20:35)
[2024-07-05] MEDS: levETIRAcetam 500 MG TABLET 1000 MG PO (21:06)
[2024-07-05] MEDS: ACETAMINOPHEN 325 MG TABLET 650 MG PO (21:06)
[2024-07-06] VITALS: PULSE 74
[2024-07-06 04:00] VITALS: PULSE 71
[2024-07-06 04:30] VITALS: BP 136/75; PULSE 76; RESP 18; TEMP 37.1; O2SAT 98
[2024-07-06 07:28] LABS: Basophils Percent Auto 0.4 % (0.2-1.2); Eosinophils Absolute Auto 0.2 K/mm3 (0-0.3); Eosinophils Percent Auto 3.1 % (0-4.4); Hematocrit 32.7 % (42.0-52.0); Hemoglobin 10.1 g/dL (14.0-18.0); Immature Granulocyte Absolute 0.02 K/mm3 (0.00-0.031); Immature Granulocyte Percent A 0.4 % (0-0.5); Lymphocytes Absolute Auto 0.72 K/mm3 (0.9-3.2); Lymphocytes Percent Auto 14.9 % (18.3-44.2); Mean Corpuscular HGB Conc 30.9 g/dl (32-36); Mean Corpuscular Hemoglobin 27.9 pg (26-34); Mean Corpuscular Volume 90.3 fl (80-100); Mean Platelet Volume 10.5 fl (7.4-10.4); Monocytes Absolute Auto 0.7 K/mm3 (0.1-0.6); Monocytes Percent Auto 13.7 % (2.6-8.5); Neutrophils Absolute Auto 3.3 K/mm3 (1.3-6.7); Neutrophils Percent Auto 67.5 % (45.5-73.1); Platelet Count Result 159 k/mm3 (150-375); Red Blood Count 3.62 M/mm3 (4.6-6.20); Red Cell Distribution Width 16.8 % (11.5-14.5); White Blood Count 4.8 K/mm3 (4.5-10.0)
[2024-07-06 08:00] VITALS: PULSE 75
[2024-07-06] MEDS: MEMANTINE 10 MG TABLET PO (10:11)
[2024-07-06] MEDS: levETIRAcetam 500 MG TABLET 1000 MG PO (10:11)
[2024-07-06] MEDS: ATORVASTATIN 20 MG TABLET PO (10:11)
[2024-07-06] MEDS: lamoTRIgine 100 MG TABLET 300 MG PO (10:11)
[2024-07-06] MEDS: ESCITALOPRAM OXALATE 10 MG TABLET PO (10:11)
[2024-07-06] MEDS: POTASSIUM CHLORIDE 20 MEQ PACKET (FOR LIQUID) 40 MEQ PO (10:12)
[2024-07-06] MEDS: BISACODYL 10 MG SUPPOSITORY RECTAL (10:12)
[2024-07-06] MEDS: PANTOPRAZOLE SODIUM IV 40 MG VIAL IV PUSH (10:12)
[2024-07-06] MEDS: ASPIRIN 81 MG ENTERIC TABLET PO (10:12)
[2024-07-06] MEDS: QUEtiapine FUMARATE 25 MG TABLET PO (10:12)
[2024-07-06 10:52] LABS: Alanine Aminotransferase 20 U/L (6-50); Albumin Level 3.4 g/dL (3.5-5.1); Alkaline Phosphatase 47 U/L (38-126); Anion Gap 6 mmol/L (4-12); Aspartate Amino Transferase 38 U/L (17-59); Bilirubin,Total 0.4 mg/dL (0.2-1.3); Blood Urea Nitrogen 10 mg/dL (9-20); Calcium 8.2 mg/dL (8.4-10.2); Carbon Dioxide 27 mmol/L (22-30); Chloride 102 mmol/L (98-107); Estimated CRCL calculation 59 ml/min; Estimated Glomerular Filt Rate > 60; Glucose 88 mg/dL (65-110); Potassium 3.4 mmol/L (3.4-5.0); Sodium 135 mmol/L (137-145)
[2024-07-06 12:00] VITALS: PULSE 74
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
== END 2024-07-06 15:14 ==
LOC: ANHED 18:20 → ANH3MED 23:42
PROVIDERS: Nurse Practitioner Family; Admitting Provider General Practice; Emergency Provider Emergency Medicine; PCP Internal Medicine; Visit Provider Nurse Practitioner Acute Care
DX: U07.1 COVID-19 (principal); G40.909 Epilepsy, unspecified, not intractable, without status epilepticus; K56.7 Ileus, unspecified; W06.XXXA Fall from bed, initial encounter; J96.21 Acute and chronic respiratory failure with hypoxia; G30.9 Alzheimer's disease, unspecified; F02.80 Dementia in other diseases classified elsewhere, unspecified severity, without behavioral disturbance, psychotic disturbance, mood disturbance, and anxiety; I10 Essential (primary) hypertension; E78.5 Hyperlipidemia, unspecified; M06.9 Rheumatoid arthritis, unspecified; F41.1 Generalized anxiety disorder; F32.A Depression, unspecified; E43 Unspecified severe protein-calorie malnutrition; Z68.1 Body mass index [BMI] 19.9 or less, adult; Z66 Do not resuscitate; Z87.820 Personal history of traumatic brain injury; Z79.82 Long term (current) use of aspirin
CPT/HCPCS: 36415; 70450; 70496; 70498; 71045; 72125; 74018; 74177; 80053; 81001; 83605; 83735; 84145; 85025; 85055; 85610; 85730; 87040; 87637; 92611; 96361; 96367; 96374; 96375; 96376; 99285; A9270; G0378; J0696; J1741; J1953; J2470; J7030; Q9967

== ENCOUNTER 2024-07-13 20:32 | Emergency (ER) | payer MEDICARE, MEDICAID, SELFPAY ==
--- NOTE | ~2024-07-13 | XR_ITS ---
EXAM: XR elbow LT min 3V DATE: 07/13/2024 21:11 HISTORY: pain . COMPARISON: None available. FINDINGS: Normal mineralization. No fracture or dislocation. No lytic or blastic lesion. Joint space s are maintained. Mild olecranon enthesopathy. No erosion or periosteal change. Soft tissue swelling over the olecranon. IMPRESSION: No acute osseous finding in the left elbow. Olecranon contusion/bursitis. Reviewed, dictated and finalized at location K. IMPRESSION: No acute osseous finding in the left elbow. Olecranon contusion/bur sitis.
--- NOTE | ~2024-07-13 | CT_ITS ---
EXAMINATION: CT brain wo con DATE: 07/13/2024 21:03 INDICATION: unwitnessed fall . TECHNIQUE: Computed tomography (CT) of the head was performed without intravenous contrast. The mA wa s adjusted according to patient size. Iterative reconstruction technique was employed. The dose-lengt h product was 605.33 mGy-cm. COMPARISON: 07/05/2024. FINDINGS: No acute intracranial hemorrhage or extra-axial fluid collection. No hydrocephalus, mass, or herniation. No acute ischemic infarct. Unremarkable dural venous sinus attenuation. No acute osseous abnormality. Left maxillary mucosal thickening, left mastoid fluid, the remaining aerated spaces are clear. Soft t issue thickening and nodularity obstructing the bilateral external auditory canals. Mild atrophy and moderate chronic white matter change. Atherosclerotic intracranial calcification. Ri ght posterior frontal encephalomalacia. IMPRESSION: No acute intracranial process. Bilateral external auditory canal obstruction by cerumen or soft tissue, correlate clinically. Reviewed, dictated and finalized at location K. IMPRESSION: No acute intracranial process. Bilateral external auditory canal obstruction by cerumen or soft tissue, correl ate clinically.
[2024-07-13 20:34] VITALS: BP 150/83; PULSE 77; RESP 16; TEMP 36.5; O2SAT 100
--- NOTE | 2024-07-13 20:40 | ECG_ITS ---
Test Date: 2024-07-13 20:48:13 Measurements Intervals [place] Rate: 77 P: 77 [place]: 152 QRS: 69 QRSD: 86 T: 66 QT: 368 QTc: 416 Interpretive Statements SINUS RHYTHM NORMAL ECG Compared to ECG 05/09/2024 09:04:15 Sinus arrhythmia no longer present Left ventricular hypertrophy no longer present Electronically Signed On 07-14-2024 06:40:52 CDT by Spencer Lofton D.O.
[2024-07-13 20:57] LABS: Basophils Percent Auto 0.6 % (0.2-1.2); Eosinophils Absolute Auto 0.1 K/mm3 (0-0.3); Eosinophils Percent Auto 1.8 % (0-4.4); Hematocrit 35.8 % (42.0-52.0); Hemoglobin 11.4 g/dL (14.0-18.0); Immature Granulocyte Absolute 0.05 K/mm3 (0.00-0.031); Immature Granulocyte Percent A 0.8 % (0-0.5); Lymphocytes Absolute Auto 1.21 K/mm3 (0.9-3.2); Lymphocytes Percent Auto 18.4 % (18.3-44.2); Mean Corpuscular HGB Conc 31.8 g/dl (32-36); Mean Corpuscular Hemoglobin 28.1 pg (26-34); Mean Corpuscular Volume 88.4 fl (80-100); Mean Platelet Volume 9.2 fl (7.4-10.4); Monocytes Absolute Auto 0.9 K/mm3 (0.1-0.6); Monocytes Percent Auto 13.7 % (2.6-8.5); Neutrophils Absolute Auto 4.3 K/mm3 (1.3-6.7); Neutrophils Percent Auto 64.7 % (45.5-73.1); Platelet Count Result 526 k/mm3 (150-375); Red Blood Count 4.05 M/mm3 (4.6-6.20); Red Cell Distribution Width 16.9 % (11.5-14.5); White Blood Count 6.6 K/mm3 (4.5-10.0)
--- NOTE | 2024-07-13 21:00 | ED.FALL ---
HPI - Fall General Chief Complaint: Fall Stated Complaint: FALL, ELBOW PAIN Time Seen by Provider: 07/13/24 20:40 Source: patient Mode of arrival: ambulatory Limitations: no limitations History of Present Illness HPI Narrative: This is a 69-year-old male with PMH of Alzheimer's, HTN, HLD, epilepsy, TBI who presents to the ED via EMS for chief complaint of unwitnessed fall. Patient is alert oriented x1 which is baseline for him. EMS reports that he is holding his left elbow but has had no complaints for them. Patient denies any complaints but history is quite limited due to dementia. Related Data Home Medications Medication Instructions Recorded Confirmed aspirin 81 mg tablet 81 mg PO DAILY 07/03/24 07/04/24 atorvastatin 20 mg tablet 20 mg PO DAILY 07/03/24 07/04/24 donepezil 10 mg tablet 10 mg PO HS 07/03/24 07/04/24 escitalopram oxalate 5 mg tablet 10 mg PO DAILY 07/03/24 07/04/24 lamotrigine 100 mg tablet 300 mg PO BID 07/03/24 07/04/24 levetiracetam 1,000 mg tablet 1,000 mg PO BID 07/03/24 07/04/24 magnesium hydroxide 400 mg/5 mL 400 mg PO DAILY PRN Constipation 07/03/24 07/04/24 oral suspension (Milk of Magnesia) memantine 10 mg tablet 10 mg PO BID 07/03/24 07/04/24 quetiapine 25 mg tablet 25 mg PO BID 07/03/24 07/04/24 tamsulosin 0.4 mg capsule 0.4 mg PO HS 07/03/24 07/04/24 acetaminophen 500 mg capsule 1,000 mg PO Q6H PRN Pain (Scale 07/04/24 07/04/24 Score 1-3) ibuprofen 600 mg tablet 600 mg PO TID PRN Pain (Scale 07/04/24 07/04/24 Score 4-6) Allergies Allergy/AdvReac Type Severity Reaction Status Date / Time No Known Allergies Allergy Verified 05/09/24 09:14 Review of Systems Review of Systems: All systems as dictated in HPI [facility] Past Medical History Medical History Acute and chronic respiratory failure with hypoxia Alzheimer's disease, unspecified Depression, unspecified Essential (primary) hypertension Generalized anxiety disorder Hyperlipidemia, unspecified Moderate protein-calorie malnutrition Other epilepsy, intractable, with status epilepticus Rheumatoid arthritis, unspecified Unspecified convulsions 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, subsequent encounter Family History Family History (Updated 07/03/24 @ 23:57 by Dianna Terry RN) Other Unknown family medical history Social History Social History Social History: Code Status DNR per prison doumentation Smoking status: Unknown if ever smoked Alcohol intake: unknown Substance use: unknown Living arrangements: prison Additional living arrangements comments: [facility] care concerns: No Exam Narrative: GENERAL: Well-appearing, well-nourished, and in no acute distress. HEAD: Normocephalic, atraumatic. EYES: PERRLA and EOMI. ENT: Nares clear, no rhinorrhea or epistaxis. Mucous membranes moist. Oropharynx without tonsillar hypertrophy exudate or other lesions. NECK: Supple. No adenopathy or masses. CHEST: No respiratory distress. Clear to auscultation. No wheezes rales or rhonchi HEART: Regular rate and rhythm. No murmur heard. Normal peripheral pulses. ABDOMEN: Distension of the abdomen noted. Soft, grossly nontender, normal active bowel sounds. MSK: Mild effusion noted to the left olecranon bursa with minimal tenderness. No overlying warmth or erythema. Full range of motion of bilateral upper and lower extremities. SKIN: Warm, dry, no rash. NEURO: Alert and oriented x1-2. No focal deficits. Follows commands and converses. PSYCH: Normal mood and affect. Course Vital Signs Vital signs: Vital Signs Temperature 97.7 F 07/13/24 20:34 Pulse Rate 77 07/13/24 20:34 Respiratory Rate 16 07/13/24 20:34 Blood Pressure 150/83 H 07/13/24 20:34 Pulse Oximetry 100 07/13/24 20:34 Oxygen Delivery Room
[2024-07-13 21:02] LABS: Prothrombin Time 13.4 Seconds (11.1-14.7)
[2024-07-13 21:03] LABS: Partial Thromboplastin Time 30.5 Seconds (22.3-36.8)
[2024-07-13 21:05] LABS: Alanine Aminotransferase 15 U/L (6-50); Albumin Level 4.3 g/dL (3.5-5.1); Alkaline Phosphatase 68 U/L (38-126); Anion Gap 6 mmol/L (4-12); Aspartate Amino Transferase 26 U/L (17-59); Bilirubin,Total 0.3 mg/dL (0.2-1.3); Blood Urea Nitrogen 10 mg/dL (9-20); Calcium 9.3 mg/dL (8.4-10.2); Carbon Dioxide 33 mmol/L (22-30); Chloride 98 mmol/L (98-107); Estimated CRCL calculation 36 ml/min; Estimated Glomerular Filt Rate > 60; Glucose 95 mg/dL (65-110); Sodium 137 mmol/L (137-145)
[2024-07-13 21:15] LABS: Troponin I < 0.012 ng/mL (0.000-0.034)
[2024-07-13 22:13] VITALS: BP 131/68; PULSE 77; RESP 16; O2SAT 99
== END 2024-07-13 23:45 ==
PROVIDERS: Emergency Medicine; Emergency Provider Physician Assistant; PCP Internal Medicine
DX: M70.32 Other bursitis of elbow, left elbow (principal); G30.9 Alzheimer's disease, unspecified; F02.80 Dementia in other diseases classified elsewhere, unspecified severity, without behavioral disturbance, psychotic disturbance, mood disturbance, and anxiety; G40.909 Epilepsy, unspecified, not intractable, without status epilepticus; I10 Essential (primary) hypertension; J96.11 Chronic respiratory failure with hypoxia; E78.5 Hyperlipidemia, unspecified; M06.9 Rheumatoid arthritis, unspecified; F41.1 Generalized anxiety disorder; Z87.820 Personal history of traumatic brain injury; Z79.82 Long term (current) use of aspirin; Z79.899 Other long term (current) drug therapy; W19.XXXA Unspecified fall, initial encounter
CPT/HCPCS: 36415; 70450; 73080; 80053; 84484; 85025; 85610; 85730; 93005; 99284

== ENCOUNTER 2024-07-30 21:50 | Emergency (ER) | payer MEDICARE, MEDICAID, SELFPAY ==
--- NOTE | ~2024-07-30 | CT_ITS ---
CT head without contrast Indication: Status post fall COMPARISON: 07/13/2024 Technique: Serial scans were obtained through the brain without the administration of contrast. Dose reduction technique was used on this scan by utilizing automated exposure control and iterative recon struction technique. The dose-length product (DLP) was 681.00 mGy-cm. Findings: There is no evidence of intracranial hemorrhage, mass lesion, or acute infarct. The ventri cles and subarachnoid spaces are dilated, consistent with mild atrophy. Low attenuation regions are seen within the periventricular white matter bilaterally, likely representing changes from chronic mi crovascular ischemic disease. There is no evidence of edema, mass effect or midline shift. The visu alized paranasal sinuses and mastoid air cells are clear. Impression: No intracranial hemorrhage, mass, or acute infarct. Atrophy and chronic white matter changes, as above. Reviewed, dictated and finalized at [facility]. Impression: No intracranial hemorrhage, mass, or acute infarct. Atrophy and chronic white matter changes, as above.
--- NOTE | ~2024-07-30 | CT_ITS ---
CT Facial Bones and Cervical Spine Clinical Indication: Status post fall Technique: Contiguous axial scans were obtained through the facial bones and cervical spine followed by coronal and sagittal reconstructions. Dose reduction technique was used on this scan by utilizing automated exposure control and iterative reconstruction technique. The dose-length product (DLP) was 168.58 mGy-cm. Findings: CT facial bones: No fractures are identified. The visualized paranasal sinuses are clear. Intraorbita l soft tissues appear normal. CT cervical spine: No acute fractures or subluxation. Probable mild chronic compression deformity of T2. There is fusion across the C6-C7 facet joints bilaterally. There is mild to moderate degenerativ e disc change throughout the cervical spine. There are additional mild to moderate facet joint degene rative changes throughout the cervical spine. There is bilateral neural foraminal narrowing at C4-C5, C5-C6, and C6-C7. There is disc ossify complex and probable mild canal stenosis at C3-C4. There is d isc osteophyte complex and probable moderate canal stenosis at C4-C5. No prevertebral soft tissue swe lling. Impression: No fracture is seen in the facial bones. No fracture or subluxation of the cervical spine. Probable mild chronic compression deformity of T2. Degenerative spondylosis in the cervical spine, as above. Reviewed, dictated and finalized at location . Impression: No fracture is seen in the facial bones. No fracture or subluxation of the cervical spine. Probable mild chronic compression deformity of T2. Degenerative spondylosis in the cervical spine, as above.
--- NOTE | ~2024-07-30 | CT_ITS ---
Noncontrast CT scan of the thoracolumbar spine CLINICAL HISTORY: Status post fall TECHNIQUE: Axial noncontrast imaging of the thoracolumbar spine was performed. Sagittal and coronal r eformatted images were constructed. Dose reduction technique was used on this scan by utilizing autom ated exposure control and iterative reconstruction technique. The dose-length product (DLP) was 507.1 0 mGy-cm. FINDINGS: No acute fracture or subluxations seen. There is mild chronic compression deformity of T2. There is moderate degenerative disc narrowing at T3-T4, T4-T5, T5-T6, T6-T7. There is kyphosis at the upper thoracic spine. No significant disc bulge or herniation evident in the thoracic spine. No spin al canal stenosis, cord compression, or neural foraminal narrowing identified. There is no fracture or subluxation of the lumbar spine. Vertebral bodies maintain normal height and alignment. Intervertebral disc spaces are relatively well-preserved. At L1-L2, L2-L3, L3-L4, there is no significant disc bulge or herniation. No spinal canal stenosis or neural foraminal narrowing at these levels. At L4-L5, there is minimal disc bulge. No spinal canal stenosis or neural foraminal narrowing. At L5-S1, there is no significant disc bulge or herniation. No spinal canal stenosis. There is mild t o moderate bilateral neural foraminal narrowing. Paravertebral soft tissues are unremarkable. Impression: No acute posttraumatic abnormality. Mild chronic compression deformity of T2. Mild degenerative spondylitic changes, as above. Reviewed, dictated and finalized at [facility]. Impression: No acute posttraumatic abnormality. Mild chronic compression deformity of T2. Mild degenerative spondylitic changes, as above.
[2024-07-30 21:55] VITALS: BP 147/66; PULSE 80; RESP 12; TEMP 36.9; O2SAT 97
[2024-07-30 22:11] VITALS: BP 147/66; PULSE 80; RESP 12; TEMP 36.9; O2SAT 97
--- NOTE | 2024-07-30 23:31 | PC.NURSE ---
Report received from YOVANI Mckeon. Assumed care of patient at this time.
[2024-07-31] VITALS (9 sets, daily range): BP systolic 135–198; BP diastolic 75–105; PULSE 78–111; RESP 12–23; O2SAT 100
--- NOTE | 2024-07-31 00:41 | PC.NURSE ---
Patient moving in bed and stated I was trying to get up. Patient is a/ox3 at this time, alert to name, place and time. Patient c/o tailbone pain. Patient denies any other pain. Patient tender to palpation of tailbone/sacral area. No obvious deformity. PRICE ACCURACY SUPERVISOR notified and orders placed.
--- NOTE | 2024-07-31 00:43 | PC.NURSE ---
Patient taken to CT via stretcher at this time.
--- NOTE | 2024-07-31 01:26 | ED.FALL ---
HPI - Fall General Chief Complaint: Fall Stated Complaint: found on floor, possible head inj, takes asa Time Seen by Provider: 07/30/24 22:05 Source: patient and EMS Mode of arrival: EMS Limitations: altered mental status History of Present Illness HPI Narrative: Patient is a 69-year-old male who presents to the ER after a fall at the [facility]. Per EMS patient was found laying on the ground underneath the sink holding his head. It is unknown whether or not patient had positive loss of consciousness. Upon arrival to the ER patient response to sternal rub but does not want to interact with staff. According to his [facility] report patient has history of a traumatic brain injury, seizures, and mental health issues. EMS reports patient is A&O x1 at baseline. They also report patient is not on blood thinners but he takes aspirin every day. Related Data Home Medications Medication Instructions Recorded Confirmed aspirin 81 mg tablet 81 mg PO DAILY 07/03/24 07/04/24 atorvastatin 20 mg tablet 20 mg PO DAILY 07/03/24 07/04/24 donepezil 10 mg tablet 10 mg PO HS 07/03/24 07/04/24 escitalopram oxalate 5 mg tablet 10 mg PO DAILY 07/03/24 07/04/24 lamotrigine 100 mg tablet 300 mg PO BID 07/03/24 07/04/24 levetiracetam 1,000 mg tablet 1,000 mg PO BID 07/03/24 07/04/24 magnesium hydroxide 400 mg/5 mL 400 mg PO DAILY PRN Constipation 07/03/24 07/04/24 oral suspension (Milk of Magnesia) memantine 10 mg tablet 10 mg PO BID 07/03/24 07/04/24 quetiapine 25 mg tablet 25 mg PO BID 07/03/24 07/04/24 tamsulosin 0.4 mg capsule 0.4 mg PO HS 07/03/24 07/04/24 acetaminophen 500 mg capsule 1,000 mg PO Q6H PRN Pain (Scale 07/04/24 07/04/24 Score 1-3) ibuprofen 600 mg tablet 600 mg PO TID PRN Pain (Scale 07/04/24 07/04/24 Score 4-6) Allergies Allergy/AdvReac Type Severity Reaction Status Date / Time No Known Allergies Allergy Verified 05/09/24 09:14 Review of Systems Review of Systems: All systems reviewed & are unremarkable except as noted in HPI and below PMFSH Past Medical History Medical History Acute and chronic respiratory failure with hypoxia Alzheimer's disease, unspecified Depression, unspecified Essential (primary) hypertension Generalized anxiety disorder Hyperlipidemia, unspecified Moderate protein-calorie malnutrition Other epilepsy, intractable, with status epilepticus Rheumatoid arthritis, unspecified Unspecified convulsions 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, subsequent encounter Family History Family History Other Unknown family medical history Social History Social History Social History: Code Status DNR per [facility] dou[facility] Smoking status: Unknown if ever smoked Alcohol intake: unknown Substance use: unknown Living arrangements: [facility] Additional living arrangements comments: [facility] Spiritual care concerns: No Exam Narrative: GENERAL: Well appearing, non-toxic, in no acute distress. HEAD: Normocephalic, atraumatic. NECK: Supple. No adenopathy, no masses. RESPIRATORY: Airway patent, respirations nonlabored. Clear to auscultation bilaterally, no rales, rhonchi, wheezing. CARDIOVASCULAR: Regular rate and rhythm without murmurs, rubs, or gallops. Peripheral pulses 2+ and equal bilaterally. ABDOMINAL: Soft, nontender, nondistended, no hepatosplenomegaly. Normoactive BS. MUSCULOSKELETAL: Moves all extremities. Strength/ROM intact without gross deformities. SKIN: Warm, dry, normal color. No rashes. NEURO: Speech clear. A & O x 2. No ataxic movements. PSYCHIATRIC: Appropriate mood and affect. Normal interaction. Polite with staff and follows directions. Course Vital Signs Vital signs: Vital Signs Temperature
--- NOTE | 2024-07-31 02:48 | PC.NURSE ---
ori rig was called at 234 and declined no rig [facility] was called at 237 and declined no rig rodriguez was called at 240 accepted eta 330 trip [id number]
== END 2024-07-31 03:16 ==
PROVIDERS: Emergency Provider Registered Nurse; PCP Internal Medicine
DX: S09.90XA Unspecified injury of head, initial encounter (principal); G30.9 Alzheimer's disease, unspecified; F02.80 Dementia in other diseases classified elsewhere, unspecified severity, without behavioral disturbance, psychotic disturbance, mood disturbance, and anxiety; I10 Essential (primary) hypertension; E78.5 Hyperlipidemia, unspecified; M06.9 Rheumatoid arthritis, unspecified; G40.909 Epilepsy, unspecified, not intractable, without status epilepticus; Z87.820 Personal history of traumatic brain injury; J96.11 Chronic respiratory failure with hypoxia; F32.A Depression, unspecified; F41.1 Generalized anxiety disorder; Z66 Do not resuscitate; Z79.82 Long term (current) use of aspirin; Z79.899 Other long term (current) drug therapy; M48.54XA Collapsed vertebra, not elsewhere classified, thoracic region, initial encounter for fracture; M47.812 Spondylosis without myelopathy or radiculopathy, cervical region; W19.XXXA Unspecified fall, initial encounter
CPT/HCPCS: 36415; 70450; 70486; 72125; 72128; 72131; 74177; 80053; 81001; 83605; 83690; 85025; 85610; 85730; 99284; A9270; Q9967

== ENCOUNTER 2024-07-31 21:08 | Emergency (ER) | payer MEDICARE, MEDICAID, SELFPAY ==
--- NOTE | ~2024-07-31 | CT_ITS ---
EXAMINATION: CT abdomen pelvis w con DATE: 07/31/2024 22:27 INDICATION: Left abdominal pain. Abdominal distention. TECHNIQUE: Computed tomography (CT) of the abdomen and pelvis was performed with 100 mL Omnipaque 350 intravenous contrast. Automated exposure control and iterative reconstruction technique were employe d. The dose-length product was 232.85 mGy-cm. COMPARISON: CT abdomen and pelvis 07/03/2024 FINDINGS: The visualized portions of the lung bases demonstrate emphysema and mild atelectasis. No pl eural effusion. There is a moderate-sized sliding hiatal hernia. The heart size is normal. No pericar dial effusion. The liver, gallbladder, spleen, pancreas, adrenal glands, and right kidney are normal. There is an 8 mm stone in left kidney. There is a moderate volume of stool in the colon. The colon i s distended. There are dilated loops of small bowel. The prostate is moderately enlarged. There are n o pathologically enlarged lymph nodes. There is no free intraperitoneal fluid. There is a left inguin al hernia containing fat. There is a left hip arthroplasty. There is mild lumbar spondylosis. IMPRESSION: 1. Dilated small and large bowel, likely adynamic ileus. 2. Moderate-sized sliding hiatal hernia. Reviewed, dictated and finalized at location A.
[2024-07-31 21:03] VITALS: BP 132/80; PULSE 86; RESP 18; TEMP 36.4; O2SAT 100
--- NOTE | 2024-07-31 21:34 | ED.ABDPAIN ---
HPI - Abdominal Pain General Chief Complaint: Abdominal Pain Stated Complaint: abd pain Source: patient and old records reviewed Mode of arrival: EMS Limitations: dementia History of Present Illness HPI narrative: Patient is a 69-year-old male, with past medical history of dementia, TBI, sz disorder, who presents to ED via EMS with report of abdominal pain. Patient is a resident of [facility]. Patient was seen in the ED overnight for a ground level fall. Had negative imaging and was discharged back to the custodial. Presents today with concern for abdominal pain. Staff reported that patient's abdomen was distended and rigid. Per records, patient has been noted to have a distended abdomen on recent ED visits. He complains of pain to his left-sided abdomen. Unable to tell me much further. No report of vomiting or fevers. Related Data Home Medications Medication Instructions Recorded Confirmed aspirin 81 mg tablet 81 mg PO DAILY 07/03/24 07/04/24 atorvastatin 20 mg tablet 20 mg PO DAILY 07/03/24 07/04/24 donepezil 10 mg tablet 10 mg PO HS 07/03/24 07/04/24 escitalopram oxalate 5 mg tablet 10 mg PO DAILY 07/03/24 07/04/24 lamotrigine 100 mg tablet 300 mg PO BID 07/03/24 07/04/24 levetiracetam 1,000 mg tablet 1,000 mg PO BID 07/03/24 07/04/24 magnesium hydroxide 400 mg/5 mL 400 mg PO DAILY PRN Constipation 07/03/24 07/04/24 oral suspension (Milk of Magnesia) memantine 10 mg tablet 10 mg PO BID 07/03/24 07/04/24 quetiapine 25 mg tablet 25 mg PO BID 07/03/24 07/04/24 tamsulosin 0.4 mg capsule 0.4 mg PO HS 07/03/24 07/04/24 acetaminophen 500 mg capsule 1,000 mg PO Q6H PRN Pain (Scale 07/04/24 07/04/24 Score 1-3) ibuprofen 600 mg tablet 600 mg PO TID PRN Pain (Scale 07/04/24 07/04/24 Score 4-6) Allergies Allergy/AdvReac Type Severity Reaction Status Date / Time No Known Allergies Allergy Verified 05/09/24 09:14 Review of Systems Review of Systems: All systems reviewed & are unremarkable except as noted in HPI. All systems reviewed & are unremarkable except as noted in HPI and below PMFSH Past Medical History Medical History Acute and chronic respiratory failure with hypoxia Alzheimer's disease, unspecified Depression, unspecified Essential (primary) hypertension Generalized anxiety disorder Hyperlipidemia, unspecified Moderate protein-calorie malnutrition Other epilepsy, intractable, with status epilepticus Rheumatoid arthritis, unspecified Unspecified convulsions 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, subsequent encounter Family History Family History Other Unknown family medical history Social History Social History Social History: Code Status DNR per custodial doumentation Smoking status: Unknown if ever smoked Alcohol intake: unknown Substance use: unknown Living arrangements: custodial Additional living arrangements comments: [facility] care concerns: No Exam Narrative: GENERAL: Elderly, appears older than stated age, chronically ill-appearing, thin, non-toxic, in no acute distress. HEAD: Normocephalic, atraumatic. RESPIRATORY: Airway patent, respirations nonlabored. Clear to auscultation bilaterally, no rales, rhonchi, wheezing. CARDIOVASCULAR: Regular rate and rhythm without murmurs, rubs, or gallops. ABDOMINAL: Abdomen is moderately distended and somewhat rigid. Diffusely minimally tender, but inconsistent tenderness. Normoactive BS. MUSCULOSKELETAL: Moves all extremities. No gross deformities. SKIN: Warm, dry, normal color. NEURO: A&O X3. Able to answer orientation questions but very confused otherwise. Follows some commands. Speech is sometimes clear, sometimes unintelligible. No ataxic movements. PSYCHIATRIC: Appropriate
[2024-07-31 21:37] VITALS: BP 160/85; PULSE 81; RESP 18; O2SAT 99
[2024-07-31 21:45] LABS: Basophils Percent Auto 0.9 % (0.2-1.2); Eosinophils Absolute Auto 0.2 K/mm3 (0-0.3); Eosinophils Percent Auto 3.8 % (0-4.4); Hemoglobin 13.1 g/dL (14.0-18.0); Immature Granulocyte Absolute 0.01 K/mm3 (0.00-0.031); Immature Granulocyte Percent A 0.2 % (0-0.5); Lymphocytes Absolute Auto 1.21 K/mm3 (0.9-3.2); Lymphocytes Percent Auto 28.6 % (18.3-44.2); Mean Corpuscular Hemoglobin 28.2 pg (26-34); Mean Corpuscular Volume 88.2 fl (80-100); Mean Platelet Volume 9.6 fl (7.4-10.4); Monocytes Absolute Auto 0.7 K/mm3 (0.1-0.6); Monocytes Percent Auto 15.4 % (2.6-8.5); Neutrophils Absolute Auto 2.2 K/mm3 (1.3-6.7); Neutrophils Percent Auto 51.1 % (45.5-73.1); Platelet Count Result 192 k/mm3 (150-375); Red Blood Count 4.65 M/mm3 (4.6-6.20); Red Cell Distribution Width 17.5 % (11.5-14.5); White Blood Count 4.2 K/mm3 (4.5-10.0)
[2024-07-31 22:01] LABS: INR 0.9; Prothrombin Time 12.8 Seconds (11.1-14.7)
[2024-07-31 22:02] LABS: Alanine Aminotransferase 16 U/L (6-50); Albumin Level 5.3 g/dL (3.5-5.1); Alkaline Phosphatase 87 U/L (38-126); Anion Gap 12 mmol/L (4-12); Aspartate Amino Transferase 32 U/L (17-59); Bilirubin,Total 0.6 mg/dL (0.2-1.3); Blood Urea Nitrogen 10 mg/dL (9-20); Calcium 10.3 mg/dL (8.4-10.2); Carbon Dioxide 31 mmol/L (22-30); Chloride 97 mmol/L (98-107); Estimated CRCL calculation 42 ml/min; Estimated Glomerular Filt Rate > 60; Glucose 118 mg/dL (65-110); Lactic Acid Reflex 1.8 mmol/L (0.7-2.0); Lipase 75 U/L (23-300); Partial Thromboplastin Time 34.4 Seconds (22.3-36.8); Potassium 3.9 mmol/L (3.4-5.0); Sodium 140 mmol/L (137-145)
[2024-07-31 22:20] VITALS: O2SAT 98
[2024-07-31 22:30] LABS: Add Urine Microscopic? YES; Appearance Urine Clear (Clear); Bacteria Urine None Seen /hpf; Bilirubin Urine Negative (Negative); Blood Urine Negative (Negative); Color Urine Yellow (Yellow); Glucose Urine UA 1+ mg/dL (Negative); Ketones Urine Trace mg/dL (Negative); Leukocyte Esterase Ur Trace LEU/UL (Negative); Nitrate Urine Negative (Negative); Non Pathogenic Casts 0-2; Protein Urine 1+ mg/dL (Negative); Specific Grav Ur 1.028 (1.001-1.035); Squamous Epithelial Cell Urine None Seen /hpf (Few); WBC Urine 0-5 /hpf (0-3); pH Urine 5.5 (5.0-9.0)
[2024-07-31] MEDS: BISACODYL 10 MG SUPPOSITORY RECTAL (23:20)
[2024-07-31 23:23] VITALS: BP 174/92; PULSE 97; RESP 15; O2SAT 100
--- NOTE | 2024-08-01 00:08 | PC.NURSE ---
Report called to [facility].
[2024-08-01 00:50] VITALS: BP 134/76; BP 134/78; PULSE 86; RESP 15; O2SAT 100
--- NOTE | 2024-08-01 00:50 | PC.NURSE ---
[facility] didnt have [facility] for the night jennifer had a 3 am eta but rusty showed up at 0043 for transport
== END 2024-08-01 01:28 ==
PROVIDERS: Emergency Provider Physician Assistant; PCP Internal Medicine
DX: K56.0 Paralytic ileus (principal); G30.9 Alzheimer's disease, unspecified; F02.80 Dementia in other diseases classified elsewhere, unspecified severity, without behavioral disturbance, psychotic disturbance, mood disturbance, and anxiety; I10 Essential (primary) hypertension; E78.5 Hyperlipidemia, unspecified; M06.9 Rheumatoid arthritis, unspecified; G40.909 Epilepsy, unspecified, not intractable, without status epilepticus; Z87.820 Personal history of traumatic brain injury; J96.11 Chronic respiratory failure with hypoxia; F32.A Depression, unspecified; F41.1 Generalized anxiety disorder; Z66 Do not resuscitate; Z79.82 Long term (current) use of aspirin; Z79.899 Other long term (current) drug therapy
CPT/HCPCS: 36415; 74177; 80053; 81001; 83605; 83690; 85025; 85610; 85730; 99284; A9270; Q9967

== ENCOUNTER 2024-08-04 12:04 | Emergency (ER) | payer MEDICARE, MEDICAID, SELFPAY ==
--- NOTE | ~2024-08-04 | CT_ITS ---
CT brain wo con Ordering provider: Yris Mcrae MD History: 69 years Male with . fall, blood thinners . Comparison: July 31, 2024 Technique: CT of the head without contrast. Radiation reduction technique utilized. The dose-length product was 6801 mGy-cm. FINDINGS: BRAIN PARENCHYMA AND CSF SPACES: Mild leukoaraiosis and diffuse cortical atrophy. Mild atheromatous d isease. No midline shift, mass effect or hemorrhage. The brain parenchyma and CSF spaces are otherwi se normal. VISUALIZED PARANASAL SINUSES: Well aerated. MASTOIDS: Well aerated. BONES: The bones appear intact. SOFT TISSUES: Visualized nasopharynx is normal. Superficial soft tissues are normal. IMPRESSION: No acute intracranial findings. Reviewed, dictated and finalized at location A.
--- NOTE | ~2024-08-04 | XR_ITS ---
XR hip LT min 2V 08/04/2024 13:15 Indication: Left hip pain Procedure: 2 views left hip Comparison: 06/01/2024 Findings: There is a left femoral bipolar hemiarthroplasty. The prosthesis is well seated. There is e xuberant heterotopic ossification adjacent to the proximal aspect of the prosthesis laterally. No acu te fracture or traumatic malalignment. Persistent sclerosis of the right ischial tuberosity. Impression: 1: Left bipolar hemiarthroplasty well seated. Exuberant callus formation surrounding the proximal asp ect of the prosthesis. 2: Sclerotic lesion right initial tuberosity concerning for malignancy. Recommend correlation with carri ne scan. Reviewed, dictated and finalized at location B. Impression: 1: Left bipolar hemiarthroplasty well seated. Exuberant callus formation surrou nding the proximal aspect of the prosthesis. 2: Sclerotic lesion right initial tuberosity concerning for malignancy. Recomme nd correlation with bone scan.
--- NOTE | ~2024-08-04 | XR_ITS ---
XR elbow LT 2V 08/04/2024 13:15 INDICATION: Left elbow pain after fall PROCEDURE: 2 views left elbow COMPARISON: No prior studies for comparison. FINDINGS: Fracture, dislocation or subluxation is not identified. No joint effusion. The soft tissues appear within normal limits. No foreign bodies are identified. IMPRESSION: 1: NO ACUTE BONE OR JOINT ABNORMALITY IDENTIFIED. Reviewed, dictated and finalized at location B.
[2024-08-04 12:10] VITALS: PULSE 86; RESP 13; TEMP 36.6; O2SAT 100
--- NOTE | 2024-08-04 13:01 | ED.FALL ---
HPI - Fall General Chief Complaint: Fall Stated Complaint: AMS Time Seen by Provider: 08/04/24 12:11 History of Present Illness HPI Narrative: 69-year-old male presenting after a fall. Patient is coming from a nursing facility and was seen falling. Sounds like he tripped on something and he fell against a wall. He complains of left hip and left elbow pain. He did not strike his head or lose consciousness. No further complaints. Related Data Home Medications Medication Instructions Recorded Confirmed aspirin 81 mg tablet 81 mg PO DAILY 07/03/24 07/04/24 atorvastatin 20 mg tablet 20 mg PO DAILY 07/03/24 07/04/24 donepezil 10 mg tablet 10 mg PO HS 07/03/24 07/04/24 escitalopram oxalate 5 mg tablet 10 mg PO DAILY 07/03/24 07/04/24 lamotrigine 100 mg tablet 300 mg PO BID 07/03/24 07/04/24 levetiracetam 1,000 mg tablet 1,000 mg PO BID 07/03/24 07/04/24 magnesium hydroxide 400 mg/5 mL 400 mg PO DAILY PRN Constipation 07/03/24 07/04/24 oral suspension (Milk of Magnesia) memantine 10 mg tablet 10 mg PO BID 07/03/24 07/04/24 quetiapine 25 mg tablet 25 mg PO BID 07/03/24 07/04/24 tamsulosin 0.4 mg capsule 0.4 mg PO HS 07/03/24 07/04/24 acetaminophen 500 mg capsule 1,000 mg PO Q6H PRN Pain (Scale 07/04/24 07/04/24 Score 1-3) ibuprofen 600 mg tablet 600 mg PO TID PRN Pain (Scale 07/04/24 07/04/24 Score 4-6) Allergies Allergy/AdvReac Type Severity Reaction Status Date / Time No Known Allergies Allergy Verified 05/09/24 09:14 Review of Systems Review of Systems: All systems reviewed & are unremarkable except as noted in HPI and below PMFSH Past Medical History Medical History Acute and chronic respiratory failure with hypoxia Alzheimer's disease, unspecified Depression, unspecified Essential (primary) hypertension Generalized anxiety disorder Hyperlipidemia, unspecified Moderate protein-calorie malnutrition Other epilepsy, intractable, with status epilepticus Rheumatoid arthritis, unspecified Unspecified convulsions 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, subsequent encounter Family History Family History Other Unknown family medical history Social History Social History Social History: Code Status DNR per [facility] doumentation Smoking status: Unknown if ever smoked Alcohol intake: unknown Substance use: unknown Living arrangements: [facility] Additional living arrangements comments: [facility] Spiritual care concerns: No Exam Narrative: GENERAL: Frail, chronically ill-appearing, intermittently intelligible speech, very pleasant HEAD: Normocephalic, atraumatic. EYES: PERRLA and EOMI. ENT: Mucous membranes moist. NECK: Supple. CHEST: Clear to auscultation. No respiratory distress. HEART: Regular rate and rhythm ABDOMEN: Soft, nontender, nondistended EXTREMITIES: normal range of motion of all extremities, mild tenderness lateral left elbow lateral left hip SKIN: Warm, dry NEURO: Alert and oriented x1. PSYCH: Normal mood and affect. Course Vital Signs Vital signs: Vital Signs Temperature 97.8 F 08/04/24 12:10 Pulse Rate 86 08/04/24 12:10 Respiratory Rate 13 08/04/24 12:10 Pulse Oximetry 100 08/04/24 12:10 Oxygen Delivery Room Air 08/04/24 12:10 Temperature 97.8 F 08/04/24 12:10 Pulse Rate 84 08/04/24 13:45 Respiratory Rate 14 08/04/24 13:45 Blood Pressure 121/67 08/04/24 13:45 Pulse Oximetry 99 08/04/24 13:45 Oxygen Delivery Room Air 08/04/24 12:10 MDM - Fall MDM Narrative Medical decision making narrative: 69-year-old male presenting after mechanical fall. Vitals within normal limits. Exam remarkable for the above. X-rays reveal no acute injuries. There is a sclerotic lesion noted in the righ
[2024-08-04 13:45] VITALS: BP 121/67; PULSE 84; RESP 14; O2SAT 99
[2024-08-04 14:57] VITALS: BP 147/80; PULSE 81; RESP 18; O2SAT 100
== END 2024-08-04 15:39 ==
PROVIDERS: Emergency Provider Emergency Medicine
DX: S79.912A Unspecified injury of left hip, initial encounter (principal); S59.902A Unspecified injury of left elbow, initial encounter; G30.9 Alzheimer's disease, unspecified; F02.80 Dementia in other diseases classified elsewhere, unspecified severity, without behavioral disturbance, psychotic disturbance, mood disturbance, and anxiety; I10 Essential (primary) hypertension; E78.5 Hyperlipidemia, unspecified; J96.11 Chronic respiratory failure with hypoxia; G40.802 Other epilepsy, not intractable, without status epilepticus; M06.9 Rheumatoid arthritis, unspecified; F32.A Depression, unspecified; F41.1 Generalized anxiety disorder; Z66 Do not resuscitate; Z96.642 Presence of left artificial hip joint; Z87.820 Personal history of traumatic brain injury; Z79.899 Other long term (current) drug therapy; Z79.82 Long term (current) use of aspirin; M89.9 Disorder of bone, unspecified; W18.09XA Striking against other object with subsequent fall, initial encounter
CPT/HCPCS: 70450; 73070; 73502; 99284

== ENCOUNTER 2024-08-19 07:11 | Emergency (ER) | payer MEDICARE, MEDICAID, SELFPAY ==
[2024-08-19] VITALS (16 sets, daily range): BP systolic 115–156; BP diastolic 69–81; PULSE 71–74; RESP 18–20; TEMP 36.7; O2SAT 99–100
--- NOTE | ~2024-08-19 | CT_ITS ---
EXAMINATION: CT cervical spine wo con DATE: 08/19/2024 08:17 INDICATION: Fall TECHNIQUE: Computed tomography (CT) of the cervical spine was performed without intravenous contrast. Automated exposure control and iterative reconstruction technique were employed. The dose-length pro duct was 142.99 mGy-cm. COMPARISON: 07/31/2024 FINDINGS: Alignment is normal. Cervical vertebral body heights are normal. Unchanged chronic T2 compression fra cture with 20% anterior vertebral body height loss. No acute fractures identified. Mild to moderate p osterior predominant disc height loss with severe uncovertebral osteoarthritis at C4-C5 and C5-C6 and mild disc height loss with mild left-sided and moderate right-sided uncovertebral osteoarthritis at C2-C3 and C3-C4. Posterior disc osteophyte complexes resulting in mild central canal stenosis at each of these levels. There is bilateral multilevel moderate to severe cervical facet osteoarthritis with fusion across the bilateral C6-C7 facet joints in the right C7-T1 facet joint. There is moderate tyson ral foraminal stenosis bilaterally at C4-C5 and C5-C6 with mild neural from stenosis at a few additio nal levels. Postoperative changes at the left side of the neck with likely vagal stimulator lead. Mil d emphysema with mild bronchiectasis and mild to moderate pleural parenchymal scarring at the bilater al apices. IMPRESSION: 1. Moderate cervical spondylosis with no acute osseous abnormality. 2. Stable chronic mild T2 compression fracture. Reviewed, dictated and finalized at location A.
--- NOTE | ~2024-08-19 | CT_ITS ---
EXAMINATION: CT brain wo con DATE: 08/19/2024 08:17 INDICATION: Fall with hematoma along the right side of the head. TECHNIQUE: Computed tomography (CT) of the head was performed without intravenous contrast. Sagittal and coronal reconstructions were performed. The mA was adjusted according to patient size. Iterative reconstruction technique was employed. The dose-length product was 605.33 mGy-cm. COMPARISON: head CT dated 08/04/2024 FINDINGS: No fracture. Chronic tiny right frontal puja hole with small focus of dystrophic calcification within and immediately underlying the region of white matter hypodensity in the anterior right frontal lobe possibly along a prior ventricular drain tract. Correlate with surgical history. No acute intracrani al hemorrhage, acute infarction or abnormal extra axial fluid collection. There is additional moderat e scattered white matter hypoattenuation consistent with chronic small vessel ischemic disease. Ventr icles are normal and symmetric. No mass/mass effect. Small bilateral mastoid effusions. The orbits an d paranasal sinuses are normal. IMPRESSION: 1. No fracture or acute intracranial process. 2. Moderate scattered white matter hypoattenuation consistent with chronic small vessel ischemic dise ase. Reviewed, dictated and finalized at location A. IMPRESSION: 1. No fracture or acute intracranial process. 2. Moderate scattered white matter hypoattenuation consistent with chronic smal l vessel ischemic disease.
--- NOTE | 2024-08-19 07:31 | PC.NURSE ---
called Ramesh VALE, to notify of patient arrival to ER at this time.
--- NOTE | 2024-08-19 07:43 | ED_ITS ---
HPI - Fall General Chief Complaint: Fall Stated Complaint: fall Time Seen by Provider: 08/19/24 07:29 Source: patient, EMS and RN notes reviewed Mode of arrival: EMS Limitations: dementia History of Present Illness HPI Narrative: Patient presents after a ground level fall which is reportedly fell backwards hitting his head. He denies loss of consciousness and states he slipped on the steps going to the basement however a he is coming from [facility] skilled nursing. He states the top of his head hurts. Patient's medication list from the skilled nursing is reviewed and confirms he is on aspirin but otherwise no other anticoagulation. Related Data Home Medications Medication Instructions Recorded Confirmed aspirin 81 mg tablet 81 mg PO DAILY 07/03/24 07/04/24 atorvastatin 20 mg tablet 20 mg PO DAILY 07/03/24 07/04/24 donepezil 10 mg tablet 10 mg PO HS 07/03/24 07/04/24 escitalopram oxalate 5 mg tablet 10 mg PO DAILY 07/03/24 07/04/24 lamotrigine 100 mg tablet 300 mg PO BID 07/03/24 07/04/24 levetiracetam 1,000 mg tablet 1,000 mg PO BID 07/03/24 07/04/24 magnesium hydroxide 400 mg/5 mL 400 mg PO DAILY PRN Constipation 07/03/24 07/04/24 oral suspension (Milk of Magnesia) memantine 10 mg tablet 10 mg PO BID 07/03/24 07/04/24 quetiapine 25 mg tablet 25 mg PO BID 07/03/24 07/04/24 tamsulosin 0.4 mg capsule 0.4 mg PO HS 07/03/24 07/04/24 acetaminophen 500 mg capsule 1,000 mg PO Q6H PRN Pain (Scale 07/04/24 07/04/24 Score 1-3) ibuprofen 600 mg tablet 600 mg PO TID PRN Pain (Scale 07/04/24 07/04/24 Score 4-6) Allergies Allergy/AdvReac Type Severity Reaction Status Date / Time No Known Allergies Allergy Verified 08/19/24 07:19 [facility] Past Medical History Medical History (Updated 08/19/24 @ 09:33 by Moriah Hernandez MD) Acute and chronic respiratory failure with hypoxia Alzheimer's disease, unspecified Compression fracture of T2 vertebra Depression, unspecified Essential (primary) hypertension Generalized anxiety disorder Hyperlipidemia, unspecified Moderate protein-calorie malnutrition Other epilepsy, intractable, with status epilepticus Rheumatoid arthritis, unspecified Unspecified convulsions 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, subsequent encounter Family History Family History Other Unknown family medical history Social History Social History (Updated 08/19/24 @ 07:46 by Moriah Hernandez MD) Social History: Code Status DNR (no CPR) per skilled nursing documentation and POLST signed 03/18/24 Never Smoking status: Former smoker Alcohol intake: unknown Substance use: unknown Living arrangements: skilled nursing Additional living arrangements comments: [facility] Additional occupation/education comments: unknown Spiritual care 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 HEAD: Tenderness to palpation overlying right parietal region where there was a small hematoma. EYES: Non injected, non icteric ENT: Nares clear, no rhinorrhea or epistaxis. NECK: Supple. No tenderness to palpation of cervical spine which are midline and without bony step-offs CHEST: Speaking in full sentences. No respiratory distress. HEART: Regular rate and rhythm. . ABDOMEN: Soft, nondistended. EXTREMITIES: Normal range of motion. No lower extremity edema. SKIN: Warm, dry, no rash. No abrasion or laceration. NEURO: No focal deficits. Alert and oriented. Speaks clearly without aphasia or dysarthria. PSYCH: Normal mood and affect. Course Vital Signs Vital signs: Vital Signs Temperature 98.1 F 08/19/24 07:12 Pulse Rate 71 08/19/24 07:12 Respiratory Rate 18 08/19/24 07:12 Blood Pressure 132/70 08/19/24 07:12 Pulse Oximetry 100 08/19/24 07:12 Oxygen Delivery Room Air 08/19/24 07:12 Temperature 98.1 F 08/19/24 07:12 Pulse Rate 71 08/19/24 07:12 Respiratory Rate 18 08/19/24 07:12 Blood Pressure 115/81 08/19/24 08:46 Pulse Oximetry 100 08/19/24 09:02 Oxygen Delivery Room Air 08/19/24 07:12 MDM - Fall MDM Narrative Medical decision making narrative: Patient presents after ground level fall in which she reportedly fell backwards and struck his head. He denies loss of consciousness although he also states that he was going down to the basement but he is presenting from a skilled nursing thus do not suspect this to be true. Hx of dementia. On aspirin. In the emergency department they are afebrile with vital signs within normal limits. Patient given ice pack and acetaminophen. No acute process or intracranial hemorrhage. He does have a stable compression fracture that is been seen previously. Discharged back to facility. Recommend patient be offered ice pack and acetaminophen over the next few days. Advised follow-up with primary care physician or facility [facility] and return with new or worsening symptoms. Differential Diagnosis Differential diagnosis: Likely other (Hematoma, intracranial hemorrhage, cervical spine fracture dislocation) Imaging Data Radiologist's impression: Impressions Head CT 08/19/24 08:19 IMPRESSION: 1. No fracture or acute intracranial process. 2. Moderate scattered white matter hypoattenuation consistent with chronic small vessel ischemic disease. Cervical Spine CT 08/19/24 08:24 IMPRESSION: 1. Moderate cervical spondylosis with no acute osseous abnormality. 2. Stable chronic mild T2 compression fracture. Discharge Plan Discharge Clinical Impression: Fall, Cervical spondylosis Compression fracture of T2 vertebra Qualifiers: Encounter type: subsequent encounter Hematoma of right parietal scalp Qualifiers: Encounter type: initial encounter Qualified Code(s): S00.03XA - Contusion of scalp, initial encounter Patient Disposition: [facility]Asst Living Condition: Stable Instructions: Antibiotic Form, Vertebral Compression Fracture (ED), Fall Prevention for Older Adults (ED), Hematoma (ED) Additional Instructions: No acute fracture or intracranial bleeding. Compression fracture in T2 is chronic and stable. Patient should be offered acetaminophen for pain. Ice pack can intermittently be applied for scalp hematoma for 15-20 minutes 4 times a day over the next 24-48 hours. Do not apply ice directly to the skin. Follow-up with primary care physician/facility [facility]. Return to the emergency department with any new or worsening symptoms Prescriptions: New acetaminophen 650 mg tablet extended release 650 mg PO Q8H PRN (Reason: pain) Qty: 20 0RF No Action quetiapine 25 mg tablet 25 mg PO BID atorvastatin 20 mg tablet 20 mg PO DAILY donepezil 10 mg tablet 10 mg PO HS magnesium hydroxide [Milk of Magnesia] 400 mg/5 mL Suspension 400 mg PO DAILY PRN (Reason: Constipation) tamsulosin 0.4 mg capsule 0.4 mg PO HS aspirin 81 mg Tablet 81 mg PO DAILY lamotrigine 100 mg tablet 300 mg PO BID memantine 10 mg tablet 10 mg PO BID escitalopram oxalate 5 mg tablet 10 mg PO DAILY levetiracetam 1,000 mg tablet 1,000 mg PO BID ibuprofen 600 mg tablet 600 mg PO TID PRN (Reason: Pain (Scale Score 4-6)) acetaminophen 500 mg capsule 1,000 mg PO Q6H PRN (Reason: Pain (Scale Score 1-3)) bisacodyl 10 mg suppository 10 mg RECTAL DAILY Qty: 12 0RF Follow-up/Referrals: UNKNOWN,DOCTOR [Primary Care Provider] - Stand Alone Forms: Senior Care Discharge Time of Disposition: 08:37
[2024-08-19] MEDS: ACETAMINOPHEN 325 MG TABLET 650 MG PO (08:15)
--- NOTE | 2024-08-19 08:56 | PC.NURSE ---
attempted to call [facility] at this time about patient return. no answer.
== END 2024-08-19 11:50 ==
PROVIDERS: Emergency Provider Student in an Organized Health Care Education/Training Program
DX: M47.812 Spondylosis without myelopathy or radiculopathy, cervical region (principal); S00.03XA Contusion of scalp, initial encounter; M48.54XD Collapsed vertebra, not elsewhere classified, thoracic region, subsequent encounter for fracture with routine healing; I10 Essential (primary) hypertension; G30.9 Alzheimer's disease, unspecified; F02.80 Dementia in other diseases classified elsewhere, unspecified severity, without behavioral disturbance, psychotic disturbance, mood disturbance, and anxiety; M06.9 Rheumatoid arthritis, unspecified; Z87.891 Personal history of nicotine dependence; W10.9XXA Fall (on) (from) unspecified stairs and steps, initial encounter
CPT/HCPCS: 70450; 72125; 99284; A9270

== ENCOUNTER 2024-12-17 15:14 | Emergency (ER) | payer MEDICARE, MEDICAID, SELFPAY ==
[2024-12-17] VITALS (13 sets, daily range): BP systolic 118–144; BP diastolic 67–94; PULSE 64–99; RESP 10–20; TEMP 36.5; O2SAT 100
--- NOTE | 2024-12-17 15:19 | ED.FALL ---
HPI - Fall General Chief Complaint: Fall Stated Complaint: fall Time Seen by Provider: 12/17/24 15:16 Source: patient and EMS Mode of arrival: EMS History of Present Illness HPI Narrative: 69 years old male came from long-term because of a fall out of his bed on a floor mat. History of hours IM ir, epilepsy, hypertension, TIA, TBI. Patient in not verbal. Related Data Home Medications ?Medication ?Instructions ?Recorded ?Confirmed ?Last Taken ?Type aspirin 81 mg tablet 81 mg PO DAILY 07/03/24 07/04/24 Unknown History atorvastatin 20 mg tablet 20 mg PO DAILY 07/03/24 07/04/24 Unknown History donepezil 10 mg tablet 10 mg PO HS 07/03/24 07/04/24 Unknown History escitalopram oxalate 5 mg tablet 10 mg PO DAILY 07/03/24 07/04/24 Unknown History lamotrigine 100 mg tablet 300 mg PO BID 07/03/24 07/04/24 Unknown History levetiracetam 1,000 mg tablet 1,000 mg PO BID 07/03/24 07/04/24 Unknown History magnesium hydroxide 400 mg/5 mL 400 mg PO DAILY PRN Constipation 07/03/24 07/04/24 Unknown History oral suspension (Milk of Magnesia) memantine 10 mg tablet 10 mg PO BID 07/03/24 07/04/24 Unknown History quetiapine 25 mg tablet 25 mg PO BID 07/03/24 07/04/24 Unknown History tamsulosin 0.4 mg capsule 0.4 mg PO HS 07/03/24 07/04/24 Unknown History acetaminophen 500 mg capsule 1,000 mg PO Q6H PRN Pain (Scale 07/04/24 07/04/24 Unknown History Score 1-3) ibuprofen 600 mg tablet 600 mg PO TID PRN Pain (Scale 07/04/24 07/04/24 Unknown History Score 4-6) Allergies Allergy/AdvReac Type Severity Reaction Status Date / Time No Known Allergies Allergy Verified 08/19/24 07:19 Review of Systems Review of Systems: All systems reviewed & are unremarkable except as noted in HPI and below PMFSH Past Medical History Medical History Compression fracture of T2 vertebra Unspecified convulsions Rheumatoid arthritis, unspecified Acute and chronic respiratory failure with hypoxia Essential (primary) hypertension Other epilepsy, intractable, with status epilepticus Alzheimer's disease, unspecified Generalized anxiety disorder Hyperlipidemia, unspecified Moderate protein-calorie malnutrition Depression, unspecified 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, subsequent encounter Family History Family History Other Unknown family medical history Social History Social History Social History: Code Status DNR (no CPR) per long-term documentation and POLST signed 03/18/24 Never Smoking status: Former smoker Alcohol intake: unknown Substance use: unknown Living arrangements: long-term Additional living arrangements comments: [facility] Additional occupation/education comments: unknown Spiritual care concerns: No ([employer]) Exam Narrative: General appearance: Well-developed, malnourished, cachectic Skin: Normal color Head: Normocephalic, nontraumatic Eyes: Clear conjunctiva ENT: Oropharynx normal, ears normal, nose normal Neck: C-collar on Chest and respiratory: Airway patent, no respiratory distress, no accessory muscle use Heart: Regular rate/rhythm Abdomen: Soft, nontender, no organomegaly, quiet bowel sounds Musculoskeletal: General stiffness all over Neurologic: Nonverbal, does not answer questions, does not follow commands Course Vital Signs Vital signs: Vital Signs Pulse Rate 71 12/17/24 15:18 Respiratory Rate 17 12/17/24 15:18 Blood Pressure 140/83 12/17/24 15:18 Pulse Oximetry 100 12/17/24 15:18 Oxygen Delivery Room Air 12/17/24 15:18 Temperature 36.5 C 12/17/24 15:30 Pulse Rate 70 12/17/24 15:30 Respiratory Rate 10 L 12/17/24 15:30 Blood Pressure 138/78 12/17/24 15:30 Pulse Oximetry 100 12/17/24 15:30 Oxygen Delivery Room Air 12/17/24 15:28 MDM - Fall MDM Narrative Medical decision making narrative: Patient had unwitnessed fall at the long-term, Nonverbal, does not follow commands, unknown injury or pain Differential diagnosis include contusion, fracture, closed head injury, cervical fracture CT head, CT cervical spine CT thoracic spine and CT lumbar spine and pelvis show without contrast showed NO ACUTE OSSEOUS ABNORMALITY CT chest without contrast showed FRACTURE OF THE RIGHT 11TH AND 12TH RIB. FRACTURE OF THE LEFT 11TH RIB X-ray of knees showed NO ACUTE OSSEOUS ABNORMALITY Differential Diagnosis Differential diagnosis: Likely other ( ABOVE) Imaging Data Radiologist's impression: Impressions Head CT 12/17/24 16:39 IMPRESSION: No acute intracranial findings. Knee X-Ray 12/17/24 17:22 IMPRESSION: No acute osseous abnormality left knee. Knee X-Ray 12/17/24 17:23 IMPRESSION: No acute osseous abnormality right knee. Cervical Spine CT 12/17/24 17:43 IMPRESSION: Possible subluxation at the level of C1-C2. Otherwise, No acute osseous abnormality cervical spine. Gross dilatation of the esophagus. Clinical correlation advised. Chest/Abdomen/Pelvis/Spine CT 12/17/24 18:15 IMPRESSION: CHEST: 1. Fracture of the right 11th and 12th ribs. Fracture of the left 11th rib. 2. Grossly dilated esophagus. Soft tissue density in the lower esophagus is not excluded. Further evaluation advised. ABDOMEN/PELVIS: 1. Dilated small and large bowel which may indicate ileus. Clinical correlation advised. CT chst ab [employer] lum wo Ordering provider: Yaniv Wolff MD History: . fall . Comparison: None. Technique: CT thoracic spine without contrast. Automated exposure control and iterative reconstruction technique were employed. The dose-length product was 249.18 mGy-cm. FINDINGS: VERTEBRAE: Kyphosis is noted. No tarsal Normal height and alignment. No subluxation or visible acute fracture. DISC SPACES: Well maintained. . No significant stenosis as visualized. PARASPINOUS SOFT TISSUES: Normal. IMPRESSION: No acute osseous abnormality of the thoracic spine. CT chst ab [employer] wo Ordering provider: Yaniv Wolff MD History: 69 years Male with . fall . Comparison: None. Technique: CT lumbar spine without contrast. Automated exposure control and iterative reconstruction technique were employed. The dose-length product was 249.18 mGy-cm. FINDINGS: VERTEBRAE: Normal height and alignment. No subluxation or visible acute fracture. DISC SPACES: Well maintained. T12-L1: No stenosis. L1-L2: No stenosis. L2-L3: No stenosis. L3-L4: No stenosis. L4-L5: No stenosis. L5-S1: No stenosis. PARASPINOUS SOFT TISSUES: Mild atheromatous disease of the abdominal aorta. IMPRESSION: No acute osseous abnormality Critical Care Time Critical Care Time Critical Care Time: No Discharge Plan Discharge Clinical Impression: Fall, Closed rib fracture Patient Disposition: NH Snf/Asst Living Condition: Stable Instructions: Rib Fracture (ED), Contusion in Adults (ED) Additional Instructions: RETURN IF SYMPTOMS ARE WORSENING , CALL YOUR FAMILY PHYSICIAN FOR APPOINTMENT, TAKE TYLENOL NEEDED FOR ACHES AND PAIN, CONTINUE HOME MEDICATIONS. Patient Language: [place] Prescriptions: No Action quetiapine 25 mg tablet 25 mg PO BID atorvastatin 20 mg tablet 20 mg PO DAILY donepezil 10 mg tablet 10 mg PO HS magnesium hydroxide [Milk of Magnesia] 400 mg/5 mL Suspension 400 mg PO DAILY PRN (Reason: Constipation) tamsulosin 0.4 mg capsule 0.4 mg PO HS aspirin 81 mg Tablet 81 mg PO DAILY lamotrigine 100 mg tablet 300 mg PO BID memantine 10 mg tablet 10 mg PO BID escitalopram oxalate 5 mg tablet 10 mg PO DAILY levetiracetam 1,000 mg tablet 1,000 mg PO BID ibuprofen 600 mg tablet 600 mg PO TID PRN (Reason: Pain (Scale Score 4-6)) acetaminophen 500 mg capsule 1,000 mg PO Q6H PRN (Reason: Pain (Scale Score 1-3)) bisacodyl 10 mg suppository 10 mg RECTAL DAILY Qty: 12 0RF acetaminophen 650 mg tablet extended release 650 mg PO Q8H PRN (Reason: pain) Qty: 20 0RF Follow-up/Referrals: UNKNOWN,DOCTOR [Non-Staff] -
--- NOTE | 2024-12-17 17:51 | PC.NURSE ---
Pt more alert, answering questions. Pt reports that he feels fine . States he believes he is at [facility] and the year is 2004 or 2005... something like that . Pt repositioned and covered up better with his blankets. Pt denies any needs at this time. VS as documented. Waiting on remaining scan results. Call light in reach.
--- NOTE | 2024-12-17 18:25 | PC.NURSE ---
Pt O2 sats were sitting between 88-90, put pt on 2L NC, and O2 sats improved to 95%.
--- NOTE | 2024-12-17 19:54 | PC.NURSE ---
this RN has attempted to call report to [facility] with no answer at 1939 and no answer at 1951.
--- NOTE | 2024-12-17 21:00 | PC.NURSE ---
Pt assisted with urinal use. Clean depends applied to patient. Assisted back into bed and covered with blankets upon request. Pt updated we are awaiting EMS to take him back to his facility. Pt denies any complaints or needs at this time. Pt drank apple juice and ate a bag of chips ahoy cookies and a fruit cup. Pt offered a sandwich and he declined. Pt's brother called and updated on results and that he will be returning back to facility tonight. Call light in reach, pt remains on bed alarm.
--- NOTE | 2024-12-17 22:08 | PC.NURSE ---
This RN got pt's evening seizure medications ordered due to prolonged transfer times back to facility. Pt was sleeping. RN attempted to wake patient up x 20+ minutes without pt waking enough to take PO medications. Pt was very difficult to awaken from sleep upon arrival to ED as well. Pt's SpO2 was 100%, even/unlabored respirations observed, however pt would not open his eyes or answer questions. Pupils still 3mm equal and reactive bilaterally. Pt was mumbling. RN sat patient up, turned light on, attempted physical stimulation, speaking loudly, without success. EMS then arrived to take pt back to facility. Pt still did not awaken enough to safely take PO medications. RN called facility and spoke with Marlee PINA to inform them that pt has not received his evening epilepsy medications.
== END 2024-12-17 22:12 ==
PROVIDERS: Emergency Provider Emergency Medicine; PCP Internal Medicine
DX: S22.41XA Multiple fractures of ribs, right side, initial encounter for closed fracture (principal); I10 Essential (primary) hypertension; G30.9 Alzheimer's disease, unspecified; G40.909 Epilepsy, unspecified, not intractable, without status epilepticus; F02.80 Dementia in other diseases classified elsewhere, unspecified severity, without behavioral disturbance, psychotic disturbance, mood disturbance, and anxiety; J96.11 Chronic respiratory failure with hypoxia; E78.5 Hyperlipidemia, unspecified; M06.9 Rheumatoid arthritis, unspecified; F32.A Depression, unspecified; Z66 Do not resuscitate; Z86.73 Personal history of transient ischemic attack (TIA), and cerebral infarction without residual deficits; Z87.820 Personal history of traumatic brain injury; Z87.891 Personal history of nicotine dependence; Z79.82 Long term (current) use of aspirin; Z79.899 Other long term (current) drug therapy; W06.XXXA Fall from bed, initial encounter
CPT/HCPCS: 70450; 71250; 72125; 72128; 72131; 73562; 74176; 99284; A9270